=== PATIENT | male | born 1960 | race Caucasian/White ===

== ENCOUNTER 2020-09-07 10:37 | Emergency (ER) | payer MEDICARE, OTHER ==
[~2020-09-07] VITALS: Ht 182.9 cm; Wt 90.7 kg
[2020-09-07] MEDS ORDERED: ATOR20 PO (11:21)
[2020-09-07] MEDS ORDERED: SULFAMETHOXAZO1 EAC1 PO (11:21)
[2020-09-07] MEDS ORDERED: ZOLP5 PO (11:21)
[2020-09-07 11:53] LABS: BASOPHILS ABSOLUTE AUTO 0.03 K/mm3 (0.00-0.23); BASOPHILS PERCENT AUTO 0 % (0-2); EOSINOPHILS ABSOLUTE AUTO 0.12 K/mm3 (0.00-0.68); EOSINOPHILS PERCENT AUTO 1 % (0-6); Hematocrit 40.5 % (37.0-53.0); Hemoglobin 13.6 g/dL (13.5-17.5); IMMATURE GRAN ABSOLUTE AUTO 0.04 K/mm3 (0.00-0.10); IMMATURE GRAN PERCENT AUTO 0 % (0-1); LYMPHOCYTES ABSOLUTE AUTO 1.44 K/mm3 (0.84-5.20); LYMPHOCYTES PERCENT AUTO 13 % (21-46); MONOCYTES ABSOLUTE AUTO 0.83 K/mm3 (0.16-1.47); MONOCYTES PERCENT AUTO 8 % (4-13); Mean Corpuscular HGB 28.8 pg (26.0-34.0); Mean Corpuscular HGB Conc 33.6 g/dL (31.5-36.5); Mean Corpuscular Volume 86 fL (80-100); Mean Platelet Volume 9.3 fL (9.1-12.4); NEUTROPHILS ABSOLUTE AUTO 8.56 K/mm3 (1.96-9.15); NEUTROPHILS PERCENT AUTO 78 % (41-73); Platelet Count 274 K/mm3 (150-400); RDW Coefficient Variation 13.4 % (11.7-14.2); Red Blood Cell Count 4.73 M/mm3 (4.30-5.90); White Blood Cell Count 11.02 K/mm3 (4.00-11.30)
[2020-09-07 12:01] LABS: Anion Gap 4 mmol/L (6-16); Blood Urea Nitrogen 10 mg/dL (8-24); Bun/Creatinine Ratio 9.5 (12.0-20.0); CO2, Blood 28 mmol/L (21-32); Calcium, Blood 8.6 mg/dL (8.5-10.1); Chloride, Blood 107 mmol/L (98-108); Creatinine, Blood 1.05 mg/dL (0.60-1.20); Glomerular Filtration Rate >60 (60-); Glucose, Blood 79 mg/dL (70-99); Potassium, Blood 4.5 mmol/L (3.5-5.5); Sodium, Blood 139 mmol/L (136-145)
[2020-09-07] MEDS ORDERED: CEPH500 PO (15:14)
[2020-11-12] MEDS ORDERED: VITAMIN D310 MC4 PO (10:58)
[2020-11-12] MEDS ORDERED: OMEP20ER PO (10:58)
[2020-11-12] MEDS ORDERED: Vitamin B Comple1 EA PO (10:58)
== END 2020-09-07 15:33 | disposition home or self-care (01) ==
LOC: ER 10:37
PROVIDERS: Emergency Medicine
DX: L02.213 Cutaneous abscess of chest wall (principal); Z87.891 Personal history of nicotine dependence
CPT/HCPCS: 10061; 76604; 80048; 85025; 99283-25; A9270

== ENCOUNTER 2020-11-20 07:51 | Day surgery (SDC) | payer MEDICARE, OTHER ==
[~2020-11-20] VITALS: Ht 176 cm; Wt 92.2 kg
[~2020-11-20 07:51] MED LIST: ATOR20 PO; CEPH500 PO; OMEP20ER PO; SULFAMETHOXAZO1 EAC1 PO; VITAMIN D310 MC4 PO; Vitamin B Comple1 EA PO; ZOLP5 PO
--- NOTE | 2020-11-20 08:20 | NUR ---
Ambulatory in Day Surgery. PT UNABLE TO STATE NAME AND DATE OF . CAREGIVER AT SIDE. VERIFIED SURGICAL SITE AND NPO STATUS WITH CAREGIVER. History, Chart, Medications and Allergies reviewed before start of procedure. Patient reports completing Chlorhexadine shower X2 prior to admission to hospital.Surgical site prepped with 2% Chlorhexidine cloth wipe.
--- NOTE | 2020-11-20 11:21 | NUR ---
Discharge instructions reviewed with patient. Patient verbalizes understanding. Copy given to patient to take home. Dressing to procedure site clean, dry, intact with no visible drainage, swelling, erythema or bruising noted. Patient States Post-Procedure ride home has been arranged. Discharged via wheelchair to private car for ride home. INSTRUCTIONS GIVEN TO SPOT CLEANER PT LIMITED IN SPEECH PT APPEARED TO BE IN LESS PAIN. SPOT CLEANER TOLD TO CALL OFFICE FOR 2 WEEEK APPOINTMENT
== END 2020-11-20 22:53 | disposition home or self-care (01) ==
LOC: ORSCMMR 07:51 → ORD 08:30 → ORSCMMR 08:30
PROVIDERS: Surgery
PROC: 0HBT0ZX Excision of Right Breast, Open Approach, Diagnostic (ICD-10-PCS; principal; 2020-11-20 08:30)
DX: L72.3 Sebaceous cyst (principal); J44.9 Chronic obstructive pulmonary disease, unspecified; I10 Essential (primary) hypertension; F03.90 Unspecified dementia, unspecified severity, without behavioral disturbance, psychotic disturbance, mood disturbance, and anxiety; Z79.899 Other long term (current) drug therapy; Z87.891 Personal history of nicotine dependence
CPT/HCPCS: 88304; 93005; 93010; A9270; J0690; J3010; J7120

== ENCOUNTER 2021-07-15 23:00 | Emergency (ER) | payer MEDICARE, OTHER ==
[~2021-07-15] VITALS: Ht 182.9 cm; Wt 86.2 kg
== END 2021-07-16 01:18 | disposition home or self-care (01) ==
LOC: ER 23:00
DX: F03.90 Unspecified dementia, unspecified severity, without behavioral disturbance, psychotic disturbance, mood disturbance, and anxiety (principal); Z87.891 Personal history of nicotine dependence; Z79.899 Other long term (current) drug therapy
CPT/HCPCS: 36415; 99284

== ENCOUNTER 2021-08-22 12:48 | Inpatient (IN) | payer MEDICARE, OTHER ==
[~2021-08-22] VITALS: Ht 180.3 cm; Wt 77.4 kg
[2021-08-22 13:18] LABS: Source, Urine Straight Cath
[2021-08-22 13:36] LABS: BASOPHILS ABSOLUTE AUTO 0.03 K/mm3 (0.00-0.23); BASOPHILS PERCENT AUTO 1 % (0-2); EOSINOPHILS ABSOLUTE AUTO 0.07 K/mm3 (0.00-0.68); EOSINOPHILS PERCENT AUTO 1 % (0-6); Hematocrit 40.5 % (37.0-53.0); Hemoglobin 13.6 g/dL (13.5-17.5); IMMATURE GRAN ABSOLUTE AUTO 0.02 K/mm3 (0.00-0.10); IMMATURE GRAN PERCENT AUTO 0 % (0-1); LYMPHOCYTES ABSOLUTE AUTO 0.99 K/mm3 (0.84-5.20); LYMPHOCYTES PERCENT AUTO 18 % (21-46); MONOCYTES ABSOLUTE AUTO 0.43 K/mm3 (0.16-1.47); MONOCYTES PERCENT AUTO 8 % (4-13); Mean Corpuscular HGB 29.1 pg (26.0-34.0); Mean Corpuscular HGB Conc 33.6 g/dL (31.5-36.5); Mean Corpuscular Volume 87 fL (80-100); Mean Platelet Volume 9.4 fL (9.1-12.4); NEUTROPHILS ABSOLUTE AUTO 4.07 K/mm3 (1.96-9.15); NEUTROPHILS PERCENT AUTO 73 % (41-73); Platelet Count 257 K/mm3 (150-400); RDW Coefficient Variation 13.2 % (11.7-14.2); RDW Standard Deviation 42.2 fL (35.1-46.3); Red Blood Cell Count 4.68 M/mm3 (4.30-5.90); White Blood Cell Count 5.61 K/mm3 (4.00-11.30)
[2021-08-22 13:37] LABS: Appearance, Urine Hazy (Clear); Bilirubin, Urine Neg (Neg); Blood, Urine 2+ (Neg); Color, Urine Yellow (P-Yellow); Glucose Qualitative, Urine Neg (Neg); Ketones, Urine 1+ (Neg); Leukocyte Esterase, Urine Neg (Neg); Nitrite, Urine Neg (Neg); Protein, Urine 1+ (Neg); Urobilinogen, Urine 1+ (Normal)
[2021-08-22 14:01] LABS: Alanine Aminotransfer (ALT/SGP 38 U/L (12-78); Albumin, Blood 3.8 g/dL (3.4-5.0); Albumin/Globulin Ratio 1.6 (0.8-1.8); Alk Phos 78 U/L (50-136); Anion Gap 4 mmol/L (6-16); Aspartate Aminotrans (AST/SGOT 23 U/L (12-37); Bilirubin, Total 0.6 mg/dL (0.1-1.0); Blood Urea Nitrogen 18 mg/dL (8-24); Bun/Creatinine Ratio 16.7 (12.0-20.0); CO2, Blood 27 mmol/L (21-32); Calcium, Blood 8.7 mg/dL (8.5-10.1); Chloride, Blood 110 mmol/L (98-108); Creatinine, Blood 1.08 mg/dL (0.60-1.20); Ethanol (Alcohol), Blood, Med <3 mg/dL; Globulin, Blood 2.4 g/dL (2.2-4.0); Glomerular Filtration Rate >60 (60-); Glucose, Blood 107 mg/dL (70-99); Sodium, Blood 141 mmol/L (136-145); Total Protein, Blood 6.2 g/dL (6.4-8.2)
[2021-08-22 14:04] LABS: U Amphetamine Screen Not Detected; U Barbituate Screen Not Detected; U Benzodiazapine Screen Not Detected; U Buprenorphine Screen Not Detected; U Cannabinoids Screen Not Detected; U Cocaine Screen Not Detected; U Methadone Screen Not Detected; U Methamphetamine Screen Not Detected; U Opiates Screen Not Detected; U Oxycodone Screen Not Detected; U Phencyclidine Screen Not Detected; U Propoxyphene Screen Not Detected
[2021-08-22 14:19] LABS: Squamous Epithelial Cells Few /hpf (Few)
[2021-08-22 14:20] LABS: Bacteria Few /hpf; Mucus Mod (0-Heavy)
[2021-08-22 15:11] LABS: Influenza A, PCR NEGATIVE (NEGATIVE); Influenza B, PCR NEGATIVE (NEGATIVE); Resp Syncytial Virus, PCR NEGATIVE (NEGATIVE); SARS-Cov-2 (COVID-19) PCR, MMC NEGATIVE (NEGATIVE)
[2021-08-23] MEDS ORDERED: DONE5 PO (17:18)
--- NOTE | 2021-08-23 17:39 | NUR ---
PT ARRIVED 1500 VIA CART AND WAS ABLE TO STAND AND BE DIRECTED TO BED. PT WAS SLIGHLTY UNSTEADY AND IS VERY HARD TO REDIRECT. PT STARTED TO IMMEDIATELY GET OUT OF BED AND DOES NOTE UNDERSTAND WHY HE IS IN BED. PT WAS REDIRECTED MULTIPLE TIMES. PT DOES NOT KNOW HOW TO LAY TOWARDS THE HEAD OF BED AND IT TAKES TWO PEOPLE TO GET HIM LAYED DOWN. DR NERI WAS NOTIFIED AND POSE IS IN PLACE TO KEEP PT FROM FALLING AND HURTING HIMSELF. PT IS ALSO BEING MONITORED BY CAMERA. PRIOR TO POSE PT WAS TREATED FOR AGITATION PER EMAR. WILL CONTINUE TO MONITOR.
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
--- NOTE | 2021-08-25 16:14 | NUR ---
Pt awake nursing at bedside. Called jocy his caregiver she states some decline the past few months. Stated his doctor put him on ambien three montha ago. Pt has a mother who is very elderly. Jocy is his payee with [employer]. Jocy and his mother had an IRIS appoinment with his [facility] care team. It is a program that completes advance directives with patients and family. pt is a DNR will get copy for chart. Notified physician pt made DNR.
--- NOTE | 2021-08-25 16:29 | NUR ---
pt missed radiology appointment today called to see what was scheduled. He was scheduled for ultrsound of carotid arteries and ches to check for anerysm.
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
--- NOTE | 2021-08-25 18:16 | NUR ---
PATIENT WOKE FROM SEDATION AND BECAME AGITATED AND AGGRESSIVE. PRN'S OF SEROQUEL AND ZYPREXA, AND HARD RESTRAINTS APPLIED FOR INTERVENTIONS. PATIENT IS LYING ON BED, INTERMITTENTLY YELLING OUT. CIRCULATION, BREATHING INTACT.
--- NOTE | 2021-08-25 22:58 | NUR ---
pt was removed from hard wrist restraints and soft ankle restraints at approx 2229. he remains in a dax vest but for now he is sleeping and additional restraints are not warranted.
--- NOTE | 2021-08-26 04:10 | NUR ---
SHIFT SUMMARY 61 YR M ADMITTED ON 08/23/21 FOR VASCULAR DIMENTIA. AT START OF SHIFT PT WAS IN HARD WRIST AND SOFT ANKLE RESTRAINTS. THESE WERE REMOVED DURING THE SHIFT PT WAS SHOWING NO SIGNS OF VIOLENT TENDANCIES. CHAVEZ VEST REMAINED ON A PRECAUTION TO PREVENT INJURY. PT WAS MEDICATED WITH SEROQUEL PER EMAR AND ONLY SCHEDULED DOSE WAS GIVEN. HE SLEPT MOST OF THE SHIFT AND MADE VERY LITTLE ATTEMPT TO GET OUT OF BED. HE DID NOT SHOW EXTREME AGGRESSION DURING THIS SHIFT. WRIST AND ANKLE RESTRAINTS DID NOT HAVE TO BE REAPPLIED THIS SHIFT. HE TOOK MEDS WHOLE W/ APPLESAUCE W/O DIFFICULTY.
--- NOTE | 2021-08-26 12:55 | NUR ---
pt displaying some air hunger review of medications with nursing. Pt does not have family chaplian notified.
--- NOTE | 2021-08-26 15:34 | NUR ---
PATIENT BLADDER SCANER SHOWS [address] GODFREY NOTIFIED, AN ORDER FOR I&O CATH RECEIVE. ATTEMPT TO CATH PATIENT. PATIENT AGITATED, YELLING, SWEARING AND SHAKING RAILS, CHAVEZ VEST ON. ZYPREXA 10 MG ADMINISTRATED. WILL CONTINUE TO MONITOR.
--- NOTE | 2021-08-26 17:41 | NUR ---
PATIENT CALM, STRAIGHT CATH DONE, 600 ML OF BOUBACAR, CLEAR URINE OBTAINED. PATIENT TOLERATED WELL. WILL CONTINUE TO MONITOR FOR RETENTION.
--- NOTE | 2021-08-27 06:33 | NUR ---
Patient is drowsy, but arousable. Oriented to self only. Patient becomes combative and impulsive. Will swing his arms when task is being done to him like medication administration or changing linens and diapers. He has vest on, and tries to get out of them and pulls on the string. PRN zyprexa and seroquel given. Patient is now sleeping. No signs of distress. Call light within reach. Bed alarm on. Q2 restraint assessment completed.
--- NOTE | 2021-08-27 12:46 | NUR ---
PATIENT BECAME VERY AGITATED AND AGRESIVE, YEALLING AND SHAKING RAILS, HE WAS ABLE TO REMOVE CHAVEZ VEST. WE WERE ABLE TO PUT RESTRAINTS BACK WITH THE HELP OF 4 PEOPLE. ZYPREXA 10 MG IV ADMINISTRATED. NOTIFIED, A NEW ORDER RECIEVED FOR AIDE SOFT WRISTS AND CHAVEZ VELT RESTRAINTS. RESTRAINS ON. PATIENT SLEEPIN AT THIS TIME.
--- NOTE | 2021-08-27 18:17 | NUR ---
PATIENT CONTINUE TO HAVE EPISODES ON AGRESSON AND GET COMBATIVE. ZYPREXA 10 MG ADMINISTRATED ORDERED. SOFT WRISTS AND VEST RESTRAINTS ON. PATIENT UNABLE TO VOID, BLADDER SCANNER REVELED 580 ML OF URINE, STRAIGHT CATH DONE, 600 ML OF URINE OBTAINED.
--- NOTE | 2021-08-27 18:33 | NUR ---
PATIENT CONTINUE TO HAVE EPISODES ON AGRESSON AND GET COMBATIVE. ZYPREXA 10 MG ADMINISTRATED ORDERED. SOFT WRISTS AND VEST RESTRAINTS ON. PATIENT UNABLE TO VOID, BLADDER SCANNER SHOWED 580 ML OF URINE, STRAIGHT CATH DONE, 600 ML OF URINE OBTAINED, PLUS AN INCONTINENT AMOUNT OF UNMEASURED URINE WHILE PATIENT PUSHED THE CATHETER OUT.
--- NOTE | 2021-08-28 04:51 | NUR ---
Patient Alert, remains in restraint. He removed both his hand and get out of bed. We were able to put him back even with punching all over. He was then medicated with zyprexa per EMAR. Vital stable, breathing at R/A unlabored. We will continue to monitor patient until giving report to the oncoming nurse.
[2021-08-28 14:17] LABS: Source, Urine Foley catheter
[2021-08-28 14:25] LABS: Bilirubin, Urine Neg (Neg); Blood, Urine 4+ (Neg); Glucose Qualitative, Urine Neg (Neg); Ketones, Urine Neg (Neg); Leukocyte Esterase, Urine 1+ (Neg); Nitrite, Urine Neg (Neg); Protein, Urine 2+ (Neg); Urobilinogen, Urine 1+ (Normal); pH, Urine 6.5 (5.0-8.0)
[2021-08-28 14:39] LABS: Color, Urine Pale Yellow (P-Yellow)
[2021-08-28 14:40] LABS: Appearance, Urine Hazy (Clear)
[2021-08-28 14:41] LABS: Amorphous Light (0-Heavy); Bacteria Few /hpf; Squamous Epithelial Cells Few /hpf (Few)
--- NOTE | 2021-08-28 17:52 | NUR ---
SHIFT SUMMARY: PATIENT CONTINUES HAVING EPISODES ON AGITATION AND AGRESSION. ZYPREXA GIVEN WELL SERAQUEL PRN. YAP CATH INSERTED DUE TO URINARY RETENTION.
--- NOTE | 2021-08-29 05:31 | NUR ---
Patient Alert, slept throughout the shift. He is at R/A, No acute changes. we will report to the oncoming nurse.
--- NOTE | 2021-08-29 08:39 | NUR ---
LOW BP'S 99/69 THIS AM WITH SINUS TACH HR, CALLED THE DR. KYARA BUSCH AT THIS POINT.
--- NOTE | 2021-08-29 15:43 | NUR ---
Notifed RN of view score 4.
--- NOTE | 2021-08-29 17:23 | NUR ---
SHIFT SUMMARY PT AOX1; CONFUSED. PT IS STILL ON RESTRAINTS DUE TO CONFUSION AND COMBATIVENESS. PT BP IS LOW; CALLED THE DR AGAIN THIS AFTERNOON AND RECEIVED AN ORDER OF 1L BOLUS OF NS. WILL RECHECK BP. BED IS IN THE LOWEST POSITION AND CALL LIGHT WITHIN REACH
--- NOTE | 2021-08-29 17:51 | NUR ---
Patient doesnt have many teeth so it's difficult for him to chew and swallow. Cannot hold half of a grilled cheese sandwich in his hand without shaking.
--- NOTE | 2021-08-29 18:51 | NUR ---
PT HAD AN EPISODE OF SHAKING AND CLAMMY, CHECKED VS; OTHER THAN TACHY, BP IS ON THE LOW SIDE STILL AND RESPIRATION 30S ALTHOUGH 1L OF FLUID GIVEN. PT HAD A HIGH RESPIRATION DUE TO SHAKINESS AND AGITATED AT ONE POINT. PT GIVEN ZYPREXA IM PER DR ORDER. DR WOULD LIKE TO GIVE ZYPREXA THAN SEROQUEL. PT STILL ON RESTRAINT. CALLED THE DR FOR LAB ORDERS STAT. DR CAME AT BEDSIDE TO ASSESS THE PT, PT IS NOW CALM AND RESPIRATION COUNT WNL.
[2021-08-29 19:27] LABS: Base Excess Venous -10.3 mmol/L; Bicarbonate Venous 16.5 mmol/L (24.0-30.0); PCO2 Venous 27.9 mmHg (38-42); PO2 Venous 48.4 mmHg (38-42); pH Blood Venous 7.35 (7.34-7.37)
[2021-08-29 19:30] LABS: BASOPHILS ABSOLUTE AUTO 0.02 K/mm3 (0.00-0.23); BASOPHILS PERCENT AUTO 0 % (0-2); EOSINOPHILS ABSOLUTE AUTO 0.02 K/mm3 (0.00-0.68); EOSINOPHILS PERCENT AUTO 0 % (0-6); IMMATURE GRAN ABSOLUTE AUTO 0.15 K/mm3 (0.00-0.10); IMMATURE GRAN PERCENT AUTO 1 % (0-1); LYMPHOCYTES ABSOLUTE AUTO 0.77 K/mm3 (0.84-5.20); LYMPHOCYTES PERCENT AUTO 6 % (21-46); MONOCYTES ABSOLUTE AUTO 0.53 K/mm3 (0.16-1.47); MONOCYTES PERCENT AUTO 4 % (4-13); Mean Corpuscular HGB 29.4 pg (26.0-34.0); Mean Corpuscular HGB Conc 31.9 g/dL (31.5-36.5); Mean Corpuscular Volume 92 fL (80-100); Mean Platelet Volume 10.8 fL (9.1-12.4); NEUTROPHILS ABSOLUTE AUTO 11.76 K/mm3 (1.96-9.15); NEUTROPHILS PERCENT AUTO 89 % (41-73); NRBC ABSOLUTE 0.03 K/mm3 (0.00-0.02); NRBC Auto 0.2 /100 WBC (0.0-0.2); Platelet Count 268 K/mm3 (150-400); RDW Standard Deviation 45.3 fL (35.1-46.3); White Blood Cell Count 13.25 K/mm3 (4.00-11.30)
[2021-08-29 19:32] LABS: Hematocrit 16.6 % (37.0-53.0); Hemoglobin 5.3 g/dL (13.5-17.5)
[2021-08-29 19:50] LABS: Albumin, Blood 2.4 g/dL (3.4-5.0); Albumin/Globulin Ratio 1.1 (0.8-1.8); Bilirubin, Total 0.2 mg/dL (0.1-1.0); Bun/Creatinine Ratio 51.9 (12.0-20.0); Creatinine, Blood 1.54 mg/dL (0.60-1.20); Globulin, Blood 2.2 g/dL (2.2-4.0); Magnesium, Blood 2.3 mg/dL (1.6-2.4); Phosphorus, Blood 4.8 mg/dL (2.5-4.9); Potassium, Blood 4.4 mmol/L (3.5-5.5); Total Protein, Blood 4.6 g/dL (6.4-8.2)
--- NOTE | 2021-08-29 20:33 | NUR ---
REMAINS AGITATED AT TIMES. BLOOD DRAWN, RESULTS LOW HGB. MD ORDERED ONE UNIT OF PRBC TO BE ADMINISTERED. CALL LIGHT IN REACH. RESTRAINTS ASSESSED AND REMAIN IN PLACE.
--- NOTE | 2021-08-29 22:13 | NUR ---
PRBC INFUSING, NO S/S ADVERSE REACTIONS. MULTIPLE ATTEMPTS AT REDIRECTION, INTERMITTENT AGITATION. SEE RESTRAINT DOCUMENTATION FOR DETAILS. CALL LIGHT IN REACH
--- NOTE | 2021-08-29 22:57 | NUR ---
PT PULLED IV OUT, NEW IV #20 PLACED IN RIGHT HAND, PRBC INFUSING. RECEIVED IM ZYPREXA ORDERED FOR AGITATION, MED EFFECTIVE, LESS AGITATED. SOLAR INSTALLATION MANAGER CALLED, ASKED FOR UPDATE (NAME AND NUMBER IN CHART), INFO GIVEN. CALL LIGHT IN REACH. WILL CONTINUE TO MONITOR.
--- NOTE | 2021-08-30 00:51 | NUR ---
ONE UNIT PRBC INFUSED. HR RAPID, BUT BP WNL (TAKEN MANUALLY 110/80). RESTING QUIETLY. CALLED NUMBER FOR CAREGIVER, BUT NO ANSWER, (SHE WANTED TO TALK TO PT AFTER BLOOD INFUSED). CALL LIGHT IN REACH
--- NOTE | 2021-08-30 04:10 | NUR ---
SAILMAKER SUMMARY HGB WAS 5.3 AROUND SHIFT COMMENCE, MD ORDERED ONE UNIT PRBC TO BE INFUSED. PT QUITE AGITATED, RESTLESS. PULLED IV OUT, RECEIVED AN IM OF ZYPREXA, CALMED DOWN AND NEW IV STARTED AND PRBC INFUSED. TEMP, HR AND BP ELEVATED AT INTERVALS THROUGH SHIFT - SEE DOCUMENTATION FOR DETAILS. MOST RECENT VS: RESP 20, DOWN FROM HIGH 28 EARLIER IN THE SHIFT, 100.4 (DOWN FROM 101.1 EARLIER IN SHIFT), HR 115, DOWN FROM 130'S TO 170'S EARLIER, BP 108/77, WHICH IS ALSO DOWN FROM EARLIER - SEE DOC FLOW SHEETS FOR DETAILS. CURRENTLY RESTING QUIETLY, WITH OCCASIONIAL EPISODE OF AGITATION. CAREGIVER LEONEL SPOKE WITH STAFF FOR UPDATES. CALL LIGHT IN REACH. FRACISCO BOSE. FOLLOW UP BLOOD DRAW FOR HGB JUST DRAWN, WAITING FOR RESULTS
[2021-08-30 04:36] LABS: Hematocrit 21.4 % (37.0-53.0); Mean Corpuscular HGB 30.7 pg (26.0-34.0); Mean Corpuscular HGB Conc 32.7 g/dL (31.5-36.5); Mean Corpuscular Volume 94 fL (80-100); Mean Platelet Volume 10.9 fL (9.1-12.4); NRBC ABSOLUTE 0.07 K/mm3 (0.00-0.02); NRBC Auto 0.4 /100 WBC (0.0-0.2); Platelet Count 267 K/mm3 (150-400); RDW Coefficient Variation 14.6 % (11.7-14.2); RDW Standard Deviation 47.8 fL (35.1-46.3); Red Blood Cell Count 2.28 M/mm3 (4.30-5.90); White Blood Cell Count 15.81 K/mm3 (4.00-11.30)
[2021-08-30 10:02] LABS: Hematocrit 19.3 % (37.0-53.0); Hemoglobin 6.4 g/dL (13.5-17.5); Mean Corpuscular HGB 30.6 pg (26.0-34.0); Mean Corpuscular HGB Conc 33.2 g/dL (31.5-36.5); Mean Corpuscular Volume 92 fL (80-100); Mean Platelet Volume 10.8 fL (9.1-12.4); NRBC Auto 0.6 /100 WBC (0.0-0.2); Platelet Count 272 K/mm3 (150-400); RDW Coefficient Variation 14.8 % (11.7-14.2); RDW Standard Deviation 47.8 fL (35.1-46.3); Red Blood Cell Count 2.09 M/mm3 (4.30-5.90)
[2021-08-30 11:06] LABS: BASOPHILS ABSOLUTE MAN 0.16 K/mm3 (0.00-0.23); BASOPHILS PERCENT MAN 1 % (0-2); EOSINOPHILS ABSOLUTE MAN 0.16 K/mm3 (0.00-0.68); EOSINOPHILS PERCENT MAN 1 % (0-6); LYMPHOCYTES ABSOLUTE MAN 2.24 K/mm3 (0.84-5.20); LYMPHOCYTES PERCENT MAN 14 % (21-46); MONOCYTES ABSOLUTE MAN 0.96 K/mm3 (0.16-1.47); MONOCYTES PERCENT MAN 6 % (4-13); NEUTROPHILS ABSOLUTE MAN 12.48 K/mm3 (1.96-9.15); SEG NEUTROPHILS PERCENT MAN 78 % (41-73); TOTAL CELLS COUNTED 100
[2021-08-30 11:57] LABS: Source, Urine Foley catheter
[2021-08-30 12:00] LABS: Bilirubin, Urine Neg (Neg); Blood, Urine 2+ (Neg); Glucose Qualitative, Urine Neg (Neg); Ketones, Urine Neg (Neg); Leukocyte Esterase, Urine 1+ (Neg); Nitrite, Urine Neg (Neg); Protein, Urine 2+ (Neg); Specific Gravity, Urine 1.025 (1.003-1.022); Urobilinogen, Urine NORM (Normal)
[2021-08-30 12:07] LABS: Appearance, Urine Hazy (Clear); Color, Urine Pale Yellow (P-Yellow)
[2021-08-30 12:08] LABS: Amorphous Light (0-Heavy); Bacteria Few /hpf; Mucus Heavy (0-Heavy); Squamous Epithelial Cells Few /hpf (Few)
[2021-08-30 15:03] LABS: Hematocrit 21.9 % (37.0-53.0); Hemoglobin 7.2 g/dL (13.5-17.5)
--- NOTE | 2021-08-30 16:25 | NUR ---
PT IS AWAKE ALERT, ORIENTED TO SELF, PT MUMBLES AND IS INCOHERANT AT TIMES AT OTHER TIMES THE PT APPEARS TO RESPOND APPROPRIATLY, THE PT IS IN BILATERAL SOFT WRIST RESTRAINTS AND CHAVEZ VEST FOR HIS SAFTEY, THE PT IS IMPULSIVE AND EASILY AGITATED AND AT TIMES COMBATIVE, PT IS A HIGH FALL RISK, AND PULLS AT HIS URINARY CATHETER AND IV. THE PT RECIEVED 1 UNIT OF PRBC'S TODAY AND TOLERATED IT WELL. PT WAS ABLE TO TAKE SOME BITES OF SOFT FOOD AND DRINK SOME FLUIDS. BED ALARM ON, CALL LIGHT IN REACH, WILL CONTINUE TO MONITOR AND ASSESS FOR CHANGES
--- NOTE | 2021-08-30 17:49 | NUR ---
LORAZAPAM GAVE ATIVAN X1 PRIOR TO CT ABD X1 DUE TO AGITATION
[2021-08-30 20:06] LABS: Hematocrit 21.7 % (37.0-53.0); Hemoglobin 7.2 g/dL (13.5-17.5)
[2021-08-30 20:59] LABS: Stool Occult Blood Guaiac 1 Neg (Neg)
--- NOTE | 2021-08-31 04:35 | NUR ---
SUMMARY: PT ORIENTED TO SELF ONLY. HE'S DROWSY BUT ROUSES DURING CARE AND PULLS AT LINES/RESTRAINTS WHENEVER AWAKE. CHAVEZ AND SOFT WRIST RESTRAINTS REMAIN INTACT D/T IMPULSIVITY, AGGITATION AND COMBATIVENESS AT TIMES. BED ALARM ON FOR FALL RISK. HE WASN'T ABLE TO SPECIFY NEEDS TONIGHT BUT MUMBLED INCOHERENTLY TO Q'S AND OCCASSIONALLY SHOUTED CURSE WORDS W/REPOSITIONING AND MEDICATION ADMINSTRATION. ORAL MEDS RECIEVED CRUSHED IN ICECREAM BUT PT REFUSED PO INTAKE AFTER A FEW BITES AT A TIME. TURN SCHEDULE MAINTAINED AND YAP IS PATENT/DRAINING. NO S/S BLEEDING THIS SHIFT, GUAIAC WAS NEGATIVE AND HGB/HCT REMAINED STABLE AFTER 1 UNIT PRBC'S RECIEVED ON DAY SHIFT. NO ACUTE CHANGES, VSS BUT HE REMAINS TACHY PER TREND. MARTHA AND REPORT TO DAY RN.
[2021-08-31 05:50] LABS: BASOPHILS ABSOLUTE AUTO 0.05 K/mm3 (0.00-0.23); BASOPHILS PERCENT AUTO 0 % (0-2); EOSINOPHILS ABSOLUTE AUTO 0.32 K/mm3 (0.00-0.68); EOSINOPHILS PERCENT AUTO 2 % (0-6); Hematocrit 22.2 % (37.0-53.0); IMMATURE GRAN ABSOLUTE AUTO 0.27 K/mm3 (0.00-0.10); IMMATURE GRAN PERCENT AUTO 2 % (0-1); LYMPHOCYTES ABSOLUTE AUTO 1.68 K/mm3 (0.84-5.20); LYMPHOCYTES PERCENT AUTO 11 % (21-46); MONOCYTES ABSOLUTE AUTO 1.19 K/mm3 (0.16-1.47); MONOCYTES PERCENT AUTO 8 % (4-13); Mean Corpuscular HGB 30.2 pg (26.0-34.0); Mean Corpuscular HGB Conc 31.5 g/dL (31.5-36.5); Mean Corpuscular Volume 96 fL (80-100); Mean Platelet Volume 10.2 fL (9.1-12.4); NEUTROPHILS ABSOLUTE AUTO 12.25 K/mm3 (1.96-9.15); NEUTROPHILS PERCENT AUTO 78 % (41-73); NRBC ABSOLUTE 0.27 K/mm3 (0.00-0.02); NRBC Auto 1.7 /100 WBC (0.0-0.2); Platelet Count 299 K/mm3 (150-400); RDW Coefficient Variation 16.5 % (11.7-14.2); RDW Standard Deviation 52.3 fL (35.1-46.3); Red Blood Cell Count 2.32 M/mm3 (4.30-5.90); White Blood Cell Count 15.76 K/mm3 (4.00-11.30)
[2021-08-31 06:12] LABS: Albumin, Blood 2.8 g/dL (3.4-5.0); Anion Gap 2 mmol/L (6-16); Blood Urea Nitrogen 50 mg/dL (8-24); Bun/Creatinine Ratio 38.2 (12.0-20.0); CO2, Blood 27 mmol/L (21-32); Calcium, Blood 8.5 mg/dL (8.5-10.1); Chloride, Blood 125 mmol/L (98-108); Creatinine, Blood 1.31 mg/dL (0.60-1.20); Glomerular Filtration Rate 56 (60-); Glucose, Blood 123 mg/dL (70-99); Phosphorus, Blood 3.5 mg/dL (2.5-4.9); Potassium, Blood 4.4 mmol/L (3.5-5.5); Sodium, Blood 154 mmol/L (136-145)
--- NOTE | 2021-08-31 13:45 | NUR ---
1 MG IV ATIVAN GIVEN TO ASSIST PT HOLDING STILL FOR CT SCAN. WILL MONITOR
--- NOTE | 2021-08-31 17:51 | NUR ---
HEAD CT UNABLE TO BE DONE DUE TO PT AGITATION AND RESTLESSNESS. IV ATIVAN WAS NOT EFFECTIVE. DR GODFREY INFORMED. NO NEW ORDERS
[2021-08-31 22:26] LABS: BASOPHILS ABSOLUTE AUTO 0.03 K/mm3 (0.00-0.23); BASOPHILS PERCENT AUTO 0 % (0-2); EOSINOPHILS ABSOLUTE AUTO 0.22 K/mm3 (0.00-0.68); EOSINOPHILS PERCENT AUTO 2 % (0-6); Hematocrit 19.9 % (37.0-53.0); Hemoglobin 6.3 g/dL (13.5-17.5); IMMATURE GRAN ABSOLUTE AUTO 0.15 K/mm3 (0.00-0.10); IMMATURE GRAN PERCENT AUTO 1 % (0-1); LYMPHOCYTES ABSOLUTE AUTO 1.88 K/mm3 (0.84-5.20); LYMPHOCYTES PERCENT AUTO 15 % (21-46); MONOCYTES ABSOLUTE AUTO 0.95 K/mm3 (0.16-1.47); MONOCYTES PERCENT AUTO 8 % (4-13); Mean Corpuscular HGB Conc 31.7 g/dL (31.5-36.5); Mean Corpuscular Volume 98 fL (80-100); Mean Platelet Volume 10.2 fL (9.1-12.4); NEUTROPHILS ABSOLUTE AUTO 9.43 K/mm3 (1.96-9.15); NEUTROPHILS PERCENT AUTO 75 % (41-73); NRBC Auto 2.4 /100 WBC (0.0-0.2); Platelet Count 281 K/mm3 (150-400); RDW Coefficient Variation 17.1 % (11.7-14.2); RDW Standard Deviation 54.6 fL (35.1-46.3); Red Blood Cell Count 2.03 M/mm3 (4.30-5.90); White Blood Cell Count 12.66 K/mm3 (4.00-11.30)
[2021-08-31 22:43] LABS: Stool Occult Blood Guaiac 1 Neg (Neg)
[2021-09-01 05:41] LABS: BASOPHILS ABSOLUTE AUTO 0.03 K/mm3 (0.00-0.23); BASOPHILS PERCENT AUTO 0 % (0-2); EOSINOPHILS ABSOLUTE AUTO 0.34 K/mm3 (0.00-0.68); EOSINOPHILS PERCENT AUTO 3 % (0-6); Hematocrit 23.9 % (37.0-53.0); Hemoglobin 7.4 g/dL (13.5-17.5); IMMATURE GRAN ABSOLUTE AUTO 0.18 K/mm3 (0.00-0.10); IMMATURE GRAN PERCENT AUTO 2 % (0-1); LYMPHOCYTES ABSOLUTE AUTO 1.88 K/mm3 (0.84-5.20); LYMPHOCYTES PERCENT AUTO 15 % (21-46); MONOCYTES ABSOLUTE AUTO 0.95 K/mm3 (0.16-1.47); MONOCYTES PERCENT AUTO 8 % (4-13); Mean Corpuscular HGB 29.5 pg (26.0-34.0); Mean Corpuscular Volume 95 fL (80-100); Mean Platelet Volume 10.1 fL (9.1-12.4); NEUTROPHILS ABSOLUTE AUTO 8.99 K/mm3 (1.96-9.15); NEUTROPHILS PERCENT AUTO 73 % (41-73); NRBC ABSOLUTE 0.28 K/mm3 (0.00-0.02); NRBC Auto 2.3 /100 WBC (0.0-0.2); Platelet Count 281 K/mm3 (150-400); RDW Coefficient Variation 18.5 % (11.7-14.2); RDW Standard Deviation 56.7 fL (35.1-46.3); Red Blood Cell Count 2.51 M/mm3 (4.30-5.90); White Blood Cell Count 12.37 K/mm3 (4.00-11.30)
[2021-09-01 06:16] LABS: Albumin, Blood 2.7 g/dL (3.4-5.0); Anion Gap 3 mmol/L (6-16); Blood Urea Nitrogen 31 mg/dL (8-24); Bun/Creatinine Ratio 29.5 (12.0-20.0); CO2, Blood 27 mmol/L (21-32); Calcium, Blood 8.3 mg/dL (8.5-10.1); Chloride, Blood 123 mmol/L (98-108); Creatinine, Blood 1.05 mg/dL (0.60-1.20); Glomerular Filtration Rate >60 (60-); Glucose, Blood 110 mg/dL (70-99); Phosphorus, Blood 3.9 mg/dL (2.5-4.9); Potassium, Blood 3.8 mmol/L (3.5-5.5); Sodium, Blood 153 mmol/L (136-145)
--- NOTE | 2021-09-01 06:32 | NUR ---
SHIFT SUMMARY Pt confused, has garbled speech, limited movement x4 extremities with intermittent tremors noted. Pt febrile with HR in the 120's at beginning of shift. MD notified and orders received to recheck CBC, check EKG, and give Ativan per mar to help relax pt for previously ordered CT scan of the head. Hgb noted to be 6.3, 1 unit PRBC given per orders, pt tolerated well. HR in the 90's to low 100's after blood complete. Pt afebrile remaining shift, repositioned for comfort, and tamiko care done as needed for incontinent bm x 2. Stool was brown, soft. Sainz patent with marginal amount of erika urine, sainz care done. Alek vest and BUE soft wrist restraints remain in place due to pt pulling at lines and impulsive. Anticipate d/c when medically stable.
[2021-09-01 09:30] LABS: Creatine Kinase MB 2.3 ng/mL (0.0-3.6); Creatine Kinase MB Index 0.4 (0.0-4.0)
--- NOTE | 2021-09-01 12:04 | NUR ---
Restraint huddle with Jaye Galdamez, Elaine Baldwin, Arianna Solo, and care management. Discussed barriers to discharge as well as barriers to restraint removal. Discussed plan for Jaye to discuss with Dr. Gore regarding medications. Care management will talk with caregiver to see if she will come in to see patient and possibly offer suggestions for patient comfort and safety.
--- NOTE | 2021-09-01 15:03 | NUR ---
TRANSFER: PROVIDER DIRECTED, DUE TO SUSPECTED NEUROLEPTIC MALIGNANT SYNDROME (SX: RIDGIDITY AND DECREASED LOC), PT WAS TRANSFERED TO ICU BED [address] IV SALINE LOCED FOR TRANSFER. BELONINGS WERE BAGGED AND BROUGHT TO ICU WITH PATIENT. PATIENT WAS TRANSPORTED IN HOSPITAL BED WITH MASK ON.
--- NOTE | 2021-09-01 16:00 | NUR ---
TRANSFER TO ICU PATIENT ARRIVED TO ICU FROM MEDICAL FLOOR AT 1450. PATIENT MUMBLING INCOHERENTLY. PATIENT UNABLE TO TRACK NURSE. PATIENT UNABLE TO ANSWER ANY NURSE QUESTIONS. DYSTONIA AND MUSCLE TWITCHING NOTED. PATIENT APPEARS SLIGHTLY RIGID. PATIENT HAS TEMP OF 99.4 DEGREES FAHRENHEIT. PATIENT SATTING 90% AND GREATER ON RA. LUNGS CLEAR. ETCO2 ON PATIENT. PATIENT IN ST, HR LOW 100S. SBP 80S TO 120S. SCDS PLACED. HYPERACTIVE BOWEL SOUNDS NOTED. PATIENT HAD BM TODAY PER DOCUMENTATION. PATIENT ON SOFT DIET. PATIENT FEEDER AND TAKES MEDS CRUSHED IN CHOCOLATE PUDDING PER MEDICAL FLOOR NURSE. YAP DRAINING ORANGE COLORED URINE. SCABS NOTED TO TO OF L HAND AND TO TOP OF R TOES. LARGE BRUISE TO L AC. L HEEL RED, BUT BLANCHEABLE. HEEL PROTECTORS PLACED TO BILAT HEELS. D5W 1/2 NS INFUSING AT 100 MLS/ HOUR. BED LOW, CALL LIGHT IN REACH. WILL CONTINUE TO MONITOR PATIENT FREQUENTLY THROUGHOUT SHIFT.
[2021-09-01 17:38] LABS: Albumin, Blood 2.6 g/dL (3.4-5.0); Bilirubin, Direct 0.1 mg/dL (0.0-0.3); Bilirubin, Indirect 0.4 mg/dL (0.1-0.7); Bilirubin, Total 0.5 mg/dL (0.1-1.0); Globulin, Blood 2.6 g/dL (2.2-4.0); Total Protein, Blood 5.2 g/dL (6.4-8.2)
--- NOTE | 2021-09-01 19:21 | NUR ---
SHIFT SUMMARY PATIENT HAS REMAINED WITH DECREASED LOC, NOT RESPONDING TO NURSE, BUT WIGGLING AROUND IN BED CONSTANTLY. DYSTONIA AND MUSCLE TWITCHING REMAIN. PATIENT HAD TMAX OF 101.1 DEGREES FAHRENHEIT. PATIENT REMAINED SATTING 90% AND GREATER ON RA. ETCO2 REMAINED ON PATIENT AND REMAINED LESS THAN 45. PATIENT REMAINED IN SR TO ST, HR 90S TO LOW 100S. SBP 80S TO 150S. SCDS IN PLACE. DOBHOFF PLACED FOR MED ADMINISTRATION. WAITING FOR PLACEMENT CONFIRMATION FROM HOSPITALIST. NO BM SINCE ARRIVED TO ICU. 550 MLS OF ORANGE COLORED URINE OUT FROM YAP. NO CHANGES TO SKIN NOTED. PATIENT REPOSITIONED Q2H. D5W 1/2 NS INFUSING AT 100 MLS/ HOUR. DANTROLENE GIVEN. REPORT HAS BEEN GIVEN TO ASSUMING COMPUTERIZED TABLE CUTTER NURSE.
--- NOTE | 2021-09-01 21:10 | NUR ---
ASSUMED CARE AT 1900 PATIENT IS ALERT AND ORIENTED X0. MOANS AND ANSWERS YES OCCASIONALLY. UNABLE TO FOLLOW COMMANDS. MOVING ALL EXTREMETIES AND HAVING DYSINESIA LIKE MOVEMENTS. 02 SATS 95% ON 2L VIA NC. WEAK COUGH WITH NO SPUTUM PRODUCTION. HR SR-ST CURRENTLY SR @99. BP STABLE. YAP DRAINING TO GRAVITY. DOBHOFF CHECKED VIA X RAY AND DR. FAUST GAVE OK TO USE. PATIENT REPOSITIONED SEVERAL TIMES. CATH CARE DONE, ORAL CARE DONE. SEE SHIFT ASSESSMENT FOR MORE DETAIL.
[2021-09-02 03:41] LABS: BASOPHILS ABSOLUTE AUTO 0.02 K/mm3 (0.00-0.23); BASOPHILS PERCENT AUTO 0 % (0-2); EOSINOPHILS ABSOLUTE AUTO 0.07 K/mm3 (0.00-0.68); EOSINOPHILS PERCENT AUTO 1 % (0-6); Hematocrit 24.1 % (37.0-53.0); Hemoglobin 7.4 g/dL (13.5-17.5); IMMATURE GRAN ABSOLUTE AUTO 0.09 K/mm3 (0.00-0.10); IMMATURE GRAN PERCENT AUTO 1 % (0-1); LYMPHOCYTES ABSOLUTE AUTO 1.03 K/mm3 (0.84-5.20); LYMPHOCYTES PERCENT AUTO 7 % (21-46); MONOCYTES ABSOLUTE AUTO 0.79 K/mm3 (0.16-1.47); MONOCYTES PERCENT AUTO 6 % (4-13); Mean Corpuscular HGB 29.6 pg (26.0-34.0); Mean Corpuscular HGB Conc 30.7 g/dL (31.5-36.5); Mean Corpuscular Volume 96 fL (80-100); Mean Platelet Volume 10.2 fL (9.1-12.4); NEUTROPHILS ABSOLUTE AUTO 11.95 K/mm3 (1.96-9.15); NEUTROPHILS PERCENT AUTO 86 % (41-73); NRBC ABSOLUTE 0.09 K/mm3 (0.00-0.02); NRBC Auto 0.6 /100 WBC (0.0-0.2); Platelet Count 258 K/mm3 (150-400); RDW Coefficient Variation 18.9 % (11.7-14.2); White Blood Cell Count 13.95 K/mm3 (4.00-11.30)
[2021-09-02 04:05] LABS: Alanine Aminotransfer (ALT/SGP 45 U/L (12-78); Albumin, Blood 2.6 g/dL (3.4-5.0); Albumin/Globulin Ratio 0.9 (0.8-1.8); Alk Phos 68 U/L (50-136); Anion Gap 4 mmol/L (6-16); Aspartate Aminotrans (AST/SGOT 44 U/L (12-37); Bilirubin, Total 0.7 mg/dL (0.1-1.0); Blood Urea Nitrogen 19 mg/dL (8-24); Bun/Creatinine Ratio 17.6 (12.0-20.0); CO2, Blood 26 mmol/L (21-32); Calcium, Blood 7.9 mg/dL (8.5-10.1); Chloride, Blood 118 mmol/L (98-108); Creatinine, Blood 1.08 mg/dL (0.60-1.20); Glomerular Filtration Rate >60 (60-); Glucose, Blood 128 mg/dL (70-99); Potassium, Blood 3.9 mmol/L (3.5-5.5); Sodium, Blood 148 mmol/L (136-145); Total Protein, Blood 5.6 g/dL (6.4-8.2)
--- NOTE | 2021-09-02 06:11 | NUR ---
SHIFT SUMMARY PATIENT RESPONDS TO TOUCH, ORIENTED X NONE. MOVES ALL EXTREMETIES. MOANS AND IS DIFFICULT TO UNDERSTAND. MEDICATED ONCE PER EMAR FOR AGITATION. 02 SATS 93% ON 3L VIA NC. LS COARSE THROUGHOUT. SUCTIONED AND ORAL CARE DONE Q4 HOURS. HR SR @90s. BP STABLE. YAP DRAINING TO GRAVITY. TEMP UP TO 101.7, ICE PACKS AND FAN APPLIED, TEMP NOW DOWN TO 99.1. NO BM THIS SHIFT.
--- NOTE | 2021-09-02 17:09 | NUR ---
SHIFT SUMMARY NO ACUTE CHANGES THIS SHIFT. PT REMAINS SOMNOLENT WITH PERIODS OF AGITATION. PT DOES NOT FOLLOW ANY DIRECTIONS OR SPEAK ANY SENSICAL WORDS. PT MOANS OUT AT TIMES. PT WITH MOIST WEAK COUGH. PT DEEP SUCTIONED WITH MINIMAL SPUTUM OUTPUT NOTED. DOBHOFF REMAINS IN PLACE WITH TF INFUSING. D5 1/2 NS INFUSING THROUGH PERIPHERAL IV AT 100 ML/HR. YAP REMAINS IN PLACE WITH YELLOW URINE OUTPUT NOTED. PT WITHOUT BM THIS SHIFT. ATTENDS REMAIN IN PLACE. PT WITH CHAVEZ VEST AND SBW RESTRAINTS IN PLACE. VITAL SIGNS STABLE. PT ON 2L O2 NC. WILL CONTINUE TO MONITOR AND REPORT OFF TO ONCOMING RN.
--- NOTE | 2021-09-02 20:55 | NUR ---
ASSUMED CARE AT 1900 PATIENT IS ALERT AND AGITATED, PULLING AT RESTRAINTS AND ATTEMPTING TO GET OUT OF BED. ORIENTED X NONE. ONE WORD ANSWERS AT TIMES, PER CAREGIVER PATIENT UNABLE TO VERBALLY COMMUNICATE AND USUALLY MOANS. CAREGIVER PATTIE SPOKE WITH PATIENT OVER THE PHONE IN HOPES IT WOULD HELP WITH HIS AGITATION. MEDICATED FOR AGITATION PER EMAR. 02 SATS 95% ON 3L VIA NC. LUNGS COARSE IN UPPER AIRWAY, CLEAR TO DIM THROUGH REST OF LUNGS. ST 104. BP STABLE. YAP DRAINING TO GRAVITY. TF INF, GLUCERNA @25 MLS HR WITH 30 MLS EVERY 4 HOUR FLUSHES. WILL INCREASE TF PER ORDERS. REPOSITONED PATIENT MULTIPLE TIMES, BOOSTED IN BED, ORAL CARE DONE. CATH CARE DONE. SEE SHIFT ASSESSMENT FOR MORE DETAIL.
--- NOTE | 2021-09-02 22:28 | NUR ---
TUBE FEED INCREASED TO 45 MLS/HR. FLUSHES CHANGED TO 110 MLS FLUSHES Q4 HOURS.
--- NOTE | 2021-09-03 03:13 | NUR ---
TUBE FEED INCREASED TO GOAL RATE OF 70 MLS/HR.
[2021-09-03 03:51] LABS: BASOPHILS ABSOLUTE AUTO 0.02 K/mm3 (0.00-0.23); BASOPHILS PERCENT AUTO 0 % (0-2); EOSINOPHILS ABSOLUTE AUTO 0.14 K/mm3 (0.00-0.68); EOSINOPHILS PERCENT AUTO 1 % (0-6); Hematocrit 23.8 % (37.0-53.0); Hemoglobin 7.3 g/dL (13.5-17.5); IMMATURE GRAN ABSOLUTE AUTO 0.12 K/mm3 (0.00-0.10); IMMATURE GRAN PERCENT AUTO 1 % (0-1); LYMPHOCYTES ABSOLUTE AUTO 1.38 K/mm3 (0.84-5.20); LYMPHOCYTES PERCENT AUTO 10 % (21-46); MONOCYTES ABSOLUTE AUTO 0.76 K/mm3 (0.16-1.47); MONOCYTES PERCENT AUTO 5 % (4-13); Mean Corpuscular HGB 29.4 pg (26.0-34.0); Mean Corpuscular HGB Conc 30.7 g/dL (31.5-36.5); Mean Corpuscular Volume 96 fL (80-100); Mean Platelet Volume 10.9 fL (9.1-12.4); NEUTROPHILS PERCENT AUTO 83 % (41-73); NRBC ABSOLUTE 0.02 K/mm3 (0.00-0.02); NRBC Auto 0.1 /100 WBC (0.0-0.2); Platelet Count 268 K/mm3 (150-400); RDW Coefficient Variation 17.1 % (11.7-14.2); RDW Standard Deviation 57.6 fL (35.1-46.3); Red Blood Cell Count 2.48 M/mm3 (4.30-5.90); White Blood Cell Count 14.52 K/mm3 (4.00-11.30)
[2021-09-03 04:16] LABS: Alanine Aminotransfer (ALT/SGP 52 U/L (12-78); Albumin, Blood 2.3 g/dL (3.4-5.0); Albumin/Globulin Ratio 0.7 (0.8-1.8); Alk Phos 77 U/L (50-136); Anion Gap 6 mmol/L (6-16); Aspartate Aminotrans (AST/SGOT 43 U/L (12-37); Bilirubin, Total 0.7 mg/dL (0.1-1.0); Blood Urea Nitrogen 18 mg/dL (8-24); Bun/Creatinine Ratio 17.6 (12.0-20.0); CO2, Blood 26 mmol/L (21-32); Calcium, Blood 7.8 mg/dL (8.5-10.1); Chloride, Blood 112 mmol/L (98-108); Creatinine, Blood 1.02 mg/dL (0.60-1.20); Globulin, Blood 3.3 g/dL (2.2-4.0); Glomerular Filtration Rate >60 (60-); Glucose, Blood 131 mg/dL (70-99); Magnesium, Blood 2.6 mg/dL (1.6-2.4); Phosphorus, Blood 4.3 mg/dL (2.5-4.9); Potassium, Blood 3.4 mmol/L (3.5-5.5); Sodium, Blood 144 mmol/L (136-145); Total Protein, Blood 5.6 g/dL (6.4-8.2)
--- NOTE | 2021-09-03 06:03 | NUR ---
SHIFT SUMMARY PATIENT RESPONDS TO TOUCH, ORIENTED X NONE. MOANS/MUMBLES, UNABLE TO FOLLOW COMMANDS. MEDICATED FOR AGITATION PER EMAR. 02 SATS 97% ON 4L. PATIENT WAS NEEDING 6L 02, NT SUCTIONED AND OXYGEN REQUIREMENTS DECREASED. LS COARSE T/O. ORAL CARE PROVIDED FREQUENTLY D/T THICK MUCOUS PRODUCTION. HR SR @90s. BP STABLE. RECTAL TEMP D/T FEVERS. TYLENOL GIVEN AND ICE PACKS. TEMP DECREASED. YAP DRAINING TO GRAVITY, DEBBIE. TF INF AT GOAL RATE 70 MLS/HR. REPOSITIONED Q2 HOURS.
--- NOTE | 2021-09-03 16:41 | NUR ---
Spoke with [facility], Chepe, ICU nurses Cassandra and Vishal and pt's caregiver, Jocy, via phone this afternoon. Nursing is requesting assistance with advanced care planning for Solis. Solis is currently being cared for in the ICU. Spoke with Chepe in CM. At this time they are not currently pursuing guardianship for Solis. Pt's ad terminal makeup operator caregiver, Jocy, and pt's mother have been making decisions about his care. Jocy and Solis's mother attended an [facility] appointment recently for assistance with filling out AD/POLST paperwork. Left HIPAA appropriate message with [facility] office [phone] to obtain a copy of the AD/POLST. Also spoke with Ceasar Rojas [facility] office, pt's PCP, to see if they have received a copy of this paperwork from the [facility] program. Thirty-five minute phone conversation with Jocy answering her questions and discussing disease trajectory for dementia. She states she is unable to come up with the AD/POLST paperwork at this time. Jocy did state that the paperwork was filled out at the appoinment with the [facility] program with [facility]. Inquired with her about coming in to see Solis and to attend a meeting with PC, CM and MD and pt's mother via phone (as his mother lives out of state according to ) to help determine a decision maker and a plan for care moving forward. Jocy states she has not see Solis since he was taken via ambulance to the hospital for this admission. Jocy has been receiving updates from ICU staff on Solis's condition. Jocy has been hesitant to visit the hospital as she states that she has not been vaccinated for COVID and is unsure of the hospital policy. Explained current hospital visitor policy and Jocy states that she will consider coming in for a meeting but it would likely not be until Tuesday. Cassandra, pt's nurse, updated on conversation. Will plan to have PC nurse follow up with pt and family/caregiver during the next few days. Jocy plans to continue to follow up with ICU nurses for updates.
--- NOTE | 2021-09-03 17:50 | NUR ---
NO ACUTE CHANGES THIS SHIFT. PT REMAINS CONFUSED, MUMBLES INCOHERENTLY. OCCASIONALLY WILL REPLY TO QUESTIONS WITH A LEGIBLE ONE WORD ANSWER. MOVES ALL EXTREMITIES. REMAINS IN RESTRAINTS FOR LINE PROTECTION. HE RECEIVED 2 DOSES OF PRN ATIVAN THIS SHIFT FOR AGITATION. NT SUCTIONING COMPLETED PRN. SUCTIONING MODERATE - LARGE THICK PATEL SPUTUM, DISCUSSED WITH MD. PT HAS OCCASIONAL PRODUCTIVE COUGH. LUNGS CLEAR AFTER SUCTIONING. SATS TOLERATE ROOM AIR WHEN AWAKE, 3LNC ADDED FOR DESATS WHILE SLEEPING. SINUS RHYTHM. TREATED FOR FEVER WITH TYELENOL X1 THIS SHIFT. TF RUNNING AT GOAL RATE 70ML/HR. YAP WITH 750CC CLEAR YELLOW-ORANGE OUTPUT.
--- NOTE | 2021-09-03 20:19 | NUR ---
ASSUMED CARE AT 1900 MOVED PATIENT FROM ICU 3 TO ICU 11. PATIENT IS ALERT/RESPONDS TO VERBAL STIMULI, APPEARS AGITATED PULLING AT TRESTRAINTS. MOANS AND IS UNABLE TO FOLLOW COMMANDS. 02 SATS 98% ON 2L VIA NC. NASAL TRUMPET IN PLACE FOR NT SUCTIONING TO HELP PATIENT CLEAR THICK PATEL MUCOUS. HR SR @88, BP STABLE. YAP DRAINING TO GRAVITY, DEBBIE URINE. TUBE FEED AT GOAL RATE 70 MLS/HR WITH 110 MLS FLUSHES Q4 HOURS. PATIENT HAD BM. REPSOTIONED. ORAL CARE DONE. CATH CARE DONE. SEE SHIFT ASSESSMENT FOR MORE DETAIL.
[2021-09-04 03:21] LABS: BASOPHILS ABSOLUTE AUTO 0.02 K/mm3 (0.00-0.23); BASOPHILS PERCENT AUTO 0 % (0-2); EOSINOPHILS ABSOLUTE AUTO 0.38 K/mm3 (0.00-0.68); EOSINOPHILS PERCENT AUTO 3 % (0-6); Hematocrit 22.4 % (37.0-53.0); Hemoglobin 7.1 g/dL (13.5-17.5); IMMATURE GRAN ABSOLUTE AUTO 0.11 K/mm3 (0.00-0.10); IMMATURE GRAN PERCENT AUTO 1 % (0-1); LYMPHOCYTES ABSOLUTE AUTO 0.83 K/mm3 (0.84-5.20); LYMPHOCYTES PERCENT AUTO 6 % (21-46); MONOCYTES PERCENT AUTO 5 % (4-13); Mean Corpuscular HGB 29.2 pg (26.0-34.0); Mean Corpuscular HGB Conc 31.7 g/dL (31.5-36.5); Mean Corpuscular Volume 92 fL (80-100); Mean Platelet Volume 10.4 fL (9.1-12.4); NEUTROPHILS ABSOLUTE AUTO 11.71 K/mm3 (1.96-9.15); NEUTROPHILS PERCENT AUTO 85 % (41-73); NRBC ABSOLUTE 0.02 K/mm3 (0.00-0.02); NRBC Auto 0.1 /100 WBC (0.0-0.2); Platelet Count 295 K/mm3 (150-400); RDW Coefficient Variation 16.3 % (11.7-14.2); RDW Standard Deviation 53.7 fL (35.1-46.3); Red Blood Cell Count 2.43 M/mm3 (4.30-5.90); White Blood Cell Count 13.75 K/mm3 (4.00-11.30)
[2021-09-04 03:42] LABS: Alanine Aminotransfer (ALT/SGP 55 U/L (12-78); Albumin, Blood 2.3 g/dL (3.4-5.0); Albumin/Globulin Ratio 0.7 (0.8-1.8); Alk Phos 92 U/L (50-136); Anion Gap 4 mmol/L (6-16); Aspartate Aminotrans (AST/SGOT 33 U/L (12-37); Bilirubin, Total 0.3 mg/dL (0.1-1.0); Blood Urea Nitrogen 18 mg/dL (8-24); Bun/Creatinine Ratio 19.4 (12.0-20.0); CO2, Blood 25 mmol/L (21-32); Calcium, Blood 7.7 mg/dL (8.5-10.1); Chloride, Blood 113 mmol/L (98-108); Creatinine, Blood 0.93 mg/dL (0.60-1.20); Globulin, Blood 3.5 g/dL (2.2-4.0); Glomerular Filtration Rate >60 (60-); Glucose, Blood 119 mg/dL (70-99); Potassium, Blood 3.7 mmol/L (3.5-5.5); Sodium, Blood 142 mmol/L (136-145); Total Protein, Blood 5.8 g/dL (6.4-8.2)
--- NOTE | 2021-09-04 05:54 | NUR ---
SHIFT SUMMARY PATIENT IS ALERT AND ORIENTED X NONE. UNABLE TO FOLLOW COMMANDS, MOVES ALL EXTREMETIES, UNABLE TO COMMUNICATE/MOANS. 02 SATS 97% ON 4L VIA NC. LS COARSE IN UPPER LOBES. NT SUCTIONED PRN, THICK PATEL SECRETIONS. HR SR @90s. BP STABLE. YAP DRAINING TO GRAVITY. PATIENT HAD LARGE BM, SOFT AND DARK BROWN. ORAL CARE AT LEAST Q4. TURNED Q2 HOURS. TUBE FEED INF AT GOAL RATE OF 70 MLS/HR WITH 110 MLS FLUSHES Q4 HOURS.
--- NOTE | 2021-09-04 09:29 | NUR ---
Requested copy of [facility] advance directive that pt has on file.
--- NOTE | 2021-09-04 15:32 | NUR ---
[facility] team called back and stated no documents on decision maker needs. Will ask them again to fax his advance directive, Review of pt with icu team and nurse. Chart review of pt care and physiciatic report. spent therputic time at bedside with patient he was able to repond to some of my questions. Between history his caregiver gave me and the physician notes this pt history presents as a very difficult life of disability and addiction. spent therputic time talking to pt and soothing him He may be having some pain or discomfort or possible some wernickes disease. Suggest hospice care for this patient his fast score is 7c
--- NOTE | 2021-09-04 17:30 | NUR ---
NO ACUTE CHANGES THIS SHIFT. NEURO: DROWSY, RESPONDS TO VOICE. FREQUENTLY RESTLESS. MUMBLES, OCCASIONALLY CRIES OUT. ANSWERS SOME SIMPLE QUESTIONS. FOLLOWS COMMANDS INTERMITTENTLY. TREATED FOR PAIN WITH TORADOL X1. RESP: 4L NC WHILE SLEEPING. NT SUCTIONED MULTIPLE TIMES. SPUTUM AMOUNT APPEARED TO DECREASE THROUGHOUT SHIFT. COLOR IS CLEAR - PATEL. COUGHS SPONTANEOUSLY. CV: SR. BP APPROPRIATE. FEVER TREATED WITH TYELENOL THIS MORNING AND HAS IMPROVED SINCE. SEE VITALS. GI/: ADEQUATE UOP. NO BM. TF RUNNING AT GOAL 70ML/HR.
--- NOTE | 2021-09-04 19:45 | NUR ---
ASSUMPTION OF CARE RECEIVED REPORT FROM MASOOD MENESES AT 1900. PT ON BEDREST, WEARING CHAVEZ AND BILATERAL WRIST RESTRAINTS. ALERT TO SELF ONLY, ABLE TO OPEN MOUTH TO ASSIST WITH ORAL CARE. FEBRILE AT 99.5. HR IS NSR, RATE IN 80'S, BP STABLE. 4L NC, SPO2 >92%. NASAL TRUMPET IN PLACE TO LEFT NARE, SUCTION PRN. LUNGS ARE COARSE, VERY WEAK COUGH EFFORT. DOBHOFF IN PLACE TO RIGHT NARE AT 70CM. TUBE FEED OF GLUCERNA 1.2 AT GOAL OF 70ML/HR WITH Q4H 110ML H2O FLUSHES. YAP PATENT, DRAINING CLEAR, YELLOW URINE. BILATERAL SCD'S IN PLACE. FOAM HEEL PROTECTORS ON BLE. 18G IN RIGHT AC, SL. ORDERS REVIEWED, WILL TREAT PRESCRIBED.
--- NOTE | 2021-09-04 22:21 | NUR ---
PT'S MOTHER, RICH, CALLED AND WAS UPDATED ON THE PATIENT. SHE REQUESTED TO TALK TO HIM ON THE TELEPHONE IN THE ROOM, AND PT RESPONDED TO HER VOICE, BUT REMAINS UNABLE TO RESPOND. HE IS CURRENTLY RESTING IN BED, BUT NOT FULLY ASLEEP.
--- NOTE | 2021-09-05 05:55 | NUR ---
PT SLEPT OFF AND ON THROUGHOUT SHIFT. MEDICATED WITH IV ATIVAN X1, MINIMAL EFFECT. PT REMAINS ALERT TO SELF ONLY, FOLLOWS COMMANDS MINIMALLY. CONTINUES WITH AGITATION AND REPOSITIONING SEEMS TO HELP. LUNGS COARSE, BUT IMPROVED WITH NT SUCTIONING. COUGH EFFORT HAS IMPROVED T/O SHIFT. 4L NC REMAINS ON, SPO2 >92%. HR REMAINS SR, RATE IN 80-90'S. BP STABLE WITH OCCASIONAL SOFT PRESSURES. YAP PATENT, DRAINING DARK YELLOW URINE, 750ML OUT THIS SHIFT. TUBE FEED REMAINS AT GOAL. Q4 ORAL CARE DONE, AND Q2 TURNS WITH REPOSITIONING OF SPO2 PROBE, BOOSTED FREQUENTLY. 18G TO RAC REMAINS SL. WILL REPORT TO ONCOMING SHIFT WHEN AVAILABLE.
[2021-09-05 06:04] LABS: BASOPHILS ABSOLUTE AUTO 0.02 K/mm3 (0.00-0.23); BASOPHILS PERCENT AUTO 0 % (0-2); EOSINOPHILS ABSOLUTE AUTO 0.28 K/mm3 (0.00-0.68); EOSINOPHILS PERCENT AUTO 3 % (0-6); Hematocrit 22.5 % (37.0-53.0); Hemoglobin 7.1 g/dL (13.5-17.5); IMMATURE GRAN ABSOLUTE AUTO 0.04 K/mm3 (0.00-0.10); IMMATURE GRAN PERCENT AUTO 0 % (0-1); LYMPHOCYTES ABSOLUTE AUTO 1.03 K/mm3 (0.84-5.20); LYMPHOCYTES PERCENT AUTO 11 % (21-46); MONOCYTES ABSOLUTE AUTO 0.67 K/mm3 (0.16-1.47); MONOCYTES PERCENT AUTO 7 % (4-13); Mean Corpuscular HGB 29.2 pg (26.0-34.0); Mean Corpuscular HGB Conc 31.6 g/dL (31.5-36.5); Mean Corpuscular Volume 93 fL (80-100); Mean Platelet Volume 10.6 fL (9.1-12.4); NEUTROPHILS ABSOLUTE AUTO 7.45 K/mm3 (1.96-9.15); NEUTROPHILS PERCENT AUTO 78 % (41-73); Platelet Count 360 K/mm3 (150-400); RDW Coefficient Variation 16.4 % (11.7-14.2); RDW Standard Deviation 54.3 fL (35.1-46.3); Red Blood Cell Count 2.43 M/mm3 (4.30-5.90); White Blood Cell Count 9.49 K/mm3 (4.00-11.30)
--- NOTE | 2021-09-05 06:14 | NUR ---
CALL TO DR. ALEMAN RE: RECENT HYPOTENSION. ORDERS FOR 500ML NS BOLUS.
[2021-09-05 06:21] LABS: Anion Gap 7 mmol/L (6-16); Blood Urea Nitrogen 19 mg/dL (8-24); Bun/Creatinine Ratio 21.7 (12.0-20.0); CO2, Blood 24 mmol/L (21-32); Calcium, Blood 7.6 mg/dL (8.5-10.1); Chloride, Blood 112 mmol/L (98-108); Creatinine, Blood 0.88 mg/dL (0.60-1.20); Glomerular Filtration Rate >60 (60-); Glucose, Blood 117 mg/dL (70-99); Potassium, Blood 3.7 mmol/L (3.5-5.5); Sodium, Blood 143 mmol/L (136-145)
--- NOTE | 2021-09-05 07:54 | NUR ---
Assumed care of pt at 0700. Bedside report received from Beth CORREIA. Pt is alert. Speech incomprehensible. Does not follow commands. Unable to verbalize needs. Pt in vest restraint and bilat soft wrist restraints. Dobhoff and NPA in place. 4 LPM NC. SpO2 90% or greater. SR per monitor. BP stable, fluid bolus complete.
--- NOTE | 2021-09-05 08:41 | NUR ---
BP LOW Call placed to Dr Nath. Orders received for additional 500 mL fluid bolus and maintenance fluids.
--- NOTE | 2021-09-05 10:22 | NUR ---
Dr Nath in to see patient. Discussed improvement in BP. Provider stated pt appropriate for PCU status. Bedbath complete.
--- NOTE | 2021-09-05 13:08 | NUR ---
pt more alert at times. has to have nt suction. will review hospice with team on tuesday. need decision maker.
--- NOTE | 2021-09-05 17:04 | NUR ---
SUMMARY Neuro: Pt alert. Opens eyes spontaneously. Often speaks, speech incomprehensible. Responds to questions but not clear that response is appropriate. Unable to communicate needs. Occasionally follows directions, opening mouth when instructed to do so for oral care. Does not help with repositions, however. Musculoskeletal: Q2H positioning provided for pressure ulcer prevention, pt often repositions self off of pillows, however. Pt slides down in bed, and pulls against restraints enough to significantly loosen them. Pt often sits up in bed and places legs over the edge of bed, attempting to get out of bed. Does not get back into bed when instructed to do so. Therefore, pt remains in bilateral wrist restraints and vest restraint. Respiratory: SpO2 100% on room air. Lungs coarse t/o. Pt continues to have loose, moist cough that is not productive on its own. Pt has required NT suctioning Q2H, otherwise pt has trouble maintaining oxygen saturations. Large amounts of stringy, winston sputum retrieved with NT suction. NPA remains in place to left nare. Cardiac: SR per monitor. BP stable after 500 mL fluid bolus this shift and addition of maintenance fluids. No edema. GI: Tolerating tube feeds well. 1 formed BM today, incontinent. : Good output from sainz cathter Skin: Unchanged from initial assessment. New mepilex heel dressings placed as well as pink foam "eggcrate" to feet. Psychosocial: Unable to assess due to pt's incomprehensible speech, however pt is not agitated or combative.
--- NOTE | 2021-09-05 20:00 | NUR ---
ASSUMED CARE RECEIVED REPORT FROM MASOOD CHAUHAN AT 1900. PT IS ALERT TO SELF ONLY, SPEECH SEEMS TO HAVE IMPROVED SINCE YESTERDAY, BUT STILL SLURRED AND DIFFICULT TO UNDERSTAND. ABLE TO RESPOND YES/NO TO QUESTIONS AND FOLLOW SIMPLE COMMANDS BUT NOT CONSISTENTLY. LOW GRADE TEMP OF 99.1, PRN TYLENOL AVAILABLE. HE IS ON ROOM AIR, SPO2 >95%. THE NASAL TRUMPET REMAINS IN PLACE TO LEFT NARE FOR NT SUCTION. THICK PATEL SECRETIONS WITH NT SUCTIONING. PT'S COUGH EFFORT HAS IMPROVED. LUNGS ARE CLEAR T/O. HR IS NSR TO ST, RATE 90-100'S. BP STABLE. LR RUNNING AT 125ML/HR, HOWEVER RATE CHANGED TO 150ML/HR PER ORDERS. YAP PATENT, DRAINING TO GRAVITY. HE REMAINS IN BILATERAL SOFT WRIST RESTRAINTS AND CHAVEZ VEST HE CONTINUES TO BE AGIATED AND PULLING AT LINES, ATTEMPTING TO GET OUT OF BED. ORDERS REVIEWED, WILL TREAT PRESCRIBED.
[2021-09-06 05:06] LABS: Hematocrit 23.2 % (37.0-53.0); Hemoglobin 7.3 g/dL (13.5-17.5)
--- NOTE | 2021-09-06 06:51 | NUR ---
NO ACUTE CHANGES THIS SHIFT. HE SLEPT MINIMALLY THROUGHOUT THE NIGHT. HE CONTINUES TO REMAIN ALERT TO SELF AND MUMBLES INCOHERENT SPEECH. SHIFTS IN BED FREQUENTLY REQUIRING REPOSITIONING OFTEN. NT SUCTIONING DONE ABOUT Q4H ALONG WITH ORAL CARE. NASAL TRUMPET REMAINS IN PLACE. HE WILL SPONTANEOUSLY DESAT INTO 70'S, BUT IS VERY QUICK TO RECOVER. ON ROOM AIR, ALL VITAL SIGNS STABLE T/O SHIFT. YAP PATENT, DRAINING OVER 3L OUTPUT THIS SHIFT. LR RUNNING AT 150ML/HR INTO LEFT PERIPHERAL IV. REMOVED RIGHT WRIST IV D/T PT PULLING IN RESTRAINTS. FEBRILE WITH TMAX OF 100.1. WILL REPORT TO ONCOMING SHIFT.
--- NOTE | 2021-09-06 11:39 | NUR ---
UNABLE TO ASSESS RISK FOR SUICIDAL IDEATION DUE TO ALTERED MENTAL STATUS, ACUTE ON CHRONIC
--- NOTE | 2021-09-06 17:25 | NUR ---
SHIFT SUMMARY: NEURO: PT SLEPT DURING AM AND HIS AGITATION/RESTLESSNESS GRADUALLY DECREASED. AWAKE DURING AFTERNOON, PLEASANT, CONFUSED, FOLLOWING SIMPLE 1-STEP COMMANDS AND REDIRECTABLE. DENIES PAIN AT THIS TIME. CONTINUES TO PULL AT ANY TUBING IF OUT OF RESTRAINTS. SMILES, INTERACTS WITH STAFF. LORAZEPAM CHANGED FOR HS TO ALLOW FOR IMPROVED SLEEPING PER MD. CARDIAC: SR NO ECTOPY NOTED. DISCONTINUED LR FROM THIS AM. 98.1 THROUGHOUT SHIFT. RESP: ON RA THROUGHOUT SHIFT. 98-99% SPO2 WITH OCCASIONAL DESATURATION, NON-SUSTAINED, WHILE SLEEPING. NONPRODUCTIVE COUGH, OCCASIONAL. GI: TF CONTINUES AT GOAL OF 70/HR WITH 110ML Q4HR FLUSH. BOWEL MOVEMENT X 2 DURING SHIFT. : GOOD UOP. PER MD WILL CHECK ELECTROLYTES IN AM. INTEG: NO CHANGE. PT MAKES FREQUENT MAJOR POSITION CHANGES BY HIMSELF IN BED. SKIN CARE PERFORMED X MULTIPLE EVENTS DUE TO BOWEL MOVEMENTS. PSYCH: NO FAMILY/CAREGIVER CONTACT WITH THIS RN SO FAR THIS SHIFT.
--- NOTE | 2021-09-06 18:56 | NUR ---
review of pt with nursing.
--- NOTE | 2021-09-06 22:18 | NUR ---
ASSUMED CARE @1900 PATIENT IS ALERT AND ORIENTED TO SELF AND SOMETIMES FOLLOWS SIMPLE COMMANDS. SPEECH IS DIFFICULT TO UNDERSTAND BUT ABLE TO FORM WORDS AT TIMES. PATIENT IS VERY AGITATED YELLING AND CURSING AT STAFF CONSTANTLY TRYING TO GET OUT OF BED. MEDICATED PER EMAR. 02 SATS 98% ON RA, STRONG NONPRODUCTIVE COUGH. HR SR-ST 90s-115. BP STABLE. YAP DRAINING TO GRAVITY, CLEAR YELLOW. TF INF AT GOAL RATE 70 MLS/HR WITH 110 MLS FLUSHES Q4 HOURS. SEE SHIFT ASSESSMENT FOR MORE DETAIL.
[2021-09-07 03:52] LABS: Albumin, Blood 2.2 g/dL (3.4-5.0); Anion Gap 6 mmol/L (6-16); Blood Urea Nitrogen 15 mg/dL (8-24); Bun/Creatinine Ratio 18.1 (12.0-20.0); CO2, Blood 26 mmol/L (21-32); Calcium, Blood 8.3 mg/dL (8.5-10.1); Chloride, Blood 108 mmol/L (98-108); Creatinine, Blood 0.83 mg/dL (0.60-1.20); Glomerular Filtration Rate >60 (60-); Glucose, Blood 111 mg/dL (70-99); Phosphorus, Blood 3.9 mg/dL (2.5-4.9); Potassium, Blood 3.8 mmol/L (3.5-5.5); Sodium, Blood 140 mmol/L (136-145)
--- NOTE | 2021-09-07 06:29 | NUR ---
SHIFT SUMMARY PATIENT REMAINS ALERT AND ORIENTED TO SELF ONLY. AGITATED THROUGH THE NIGHT. MEDICATED PER EMAR BUT PATIENT SLEPT ABOUT 1 HOUR MAYBE. 02 SATS >95% ON RA. HR SR @ 90s. BP STABLE. TF REMAINS AT GOAL RATE. YAP DRAINING TO GRAVITY. PATIENT BOOSTED IN BED AND REPOSITIONED FREQUENTLY. MOVES HIS OWN HIPS. BED BED CHANGE DONE. ORAL CARE DONE Q4 HOURS.
--- NOTE | 2021-09-07 07:23 | NUR ---
ASSUMED CARE: PT RESTING AT THIS TIME, MOANING AT TIMES, NO WORDS NOTED. PT ORIENTED TO NONE. DOES NOT RESPOND WHEN NAME IS STATED AND FIDGETS IN BED FREQUENTLY. CHAVZE AND SOFT WRIST RESTRAINTS IN PLACE DUE TO CONFUSION AND PULLING AT LINES. ON RA, 97%, NSR AT 85 AT THIS TIME. TF RUNNING PER DOBHOFF. NBED ALARM ON AND FEET ELEVATED. NO ACUTE NEEDS AT THIS TIME.
--- NOTE | 2021-09-07 11:50 | NUR ---
PT'S CAREGIVER AT BEDSIDE AND HAD QUESTIONS FOR , 1ST PRESSMAN AND PALLIATIVE CARE. DR GODFREY HAS BEEN NOTIFIED TO COME SPEAK WITH SQL DATABASE ADMINISTRATOR. CARE MANAGEMENT CAME TO SEE PT. PALLIATIVE CARE NURSE WILL COME TO SEE PT WHEN ABLE
--- NOTE | 2021-09-07 12:32 | NUR ---
PT HAD BM THAT WAS BLACK AND TARRY. CALL TO DR GODFREY TO SEE IF GUAIAC WOULD BE HELPFUL DUE TO PT HAVING DECREASED H/H WITH UNKNOWN CAUSE. SAMPLE SENT TO LAB. DR GODFREY AT BEDSIDE TALKING TO FOUR SLIDE MACHINE OPERATOR AT THIS TIME.
[2021-09-07 13:11] LABS: Stool Occult Blood Guaiac 1 Pos (Neg)
--- NOTE | 2021-09-07 13:53 | NUR ---
CALL TO DR GODFREY TO LET HIM KNOW ABOUT POSITIVE GUAIC. STATES HE WILL VERIFY WITH PALLIATIVE CARE TO CONFIRM PLAN FOR PT BEFORE PROCEEDING WITH GI CONCERNS
--- NOTE | 2021-09-07 15:17 | NUR ---
DR GODFREY CALLED BACK AFTER SPEAKING WITH PT'S SENIOR PROJECT MANAGER AND MOTHER ABOUT GI BLEEDING. THEY TOLD DR THEY NEEDED TO DISCUSS IF FURTHER INTERVENTIONS WILL BE DONE. AWAITING CALL BACK FROM THEM
--- NOTE | 2021-09-07 16:12 | NUR ---
CALL TO DR GODFREY REGARDING PT'S AGITATION. PT WAS PULLING AGAINST ALL RESTRAINTS AND ROCKING THE BED. DR INSTRUCTED TO GIVE EXTRA DOSE OF ATIVAN. WILL MONITOR FOR EFFECT
--- NOTE | 2021-09-07 18:41 | NUR ---
SHIFT SUMMARY: PT HAS REQUIRED RESTRAINTS ALL DAY AND 2 DOSES OF IV ATIVAN DUE TO BEING AGITATED AND TRYING TO CLIMB OUT OF BED AND PULL AT LINES. PT BEGAN TO HAVE BLACK TARRY STOOL WITH A POSITIVE GUIAC. DR GODFREY SPOKE WITH PT'S FAMILY WHO WAS GOING TO DISCUSS AND DETERMINE IF THEY WERE GOING TO TREAT OR GO FOR COMFORT CARE. AWAITING CALL BACK. PT'S VSS AT THIS TIME. NO FURTHER NEEDS AT PRESENT
--- NOTE | 2021-09-07 21:32 | NUR ---
ASSUMED CARE AT 1900 PATIENT IS ALERT AND ORIENTED TO SELF. UNABLE TO FOLLOW COMMANDS SUCH OPENING HIS MOUTH FOR ORAL CARE. AGITATED YELLING AND PULLING AT RESTRAINTS. MEDICATED PER EMAR. 02 SATS >95% ON RA. HR SR @90s, BP STABLE. CHANGED ATTENDS, LINEN AND REPOSITIONED PATIENT. YAP DRAINING. PATIENT HAD SMALL BM DARK BROWN/BLACK. TUBE FEED INF AT GOAL RATE. OF 70 MLS/HR WITH 110 MLS FLUSHES Q4 HOURS.
[2021-09-08 04:03] LABS: Hematocrit 25.8 % (37.0-53.0); Hemoglobin 7.9 g/dL (13.5-17.5)
--- NOTE | 2021-09-08 06:02 | NUR ---
SHIFT SUMMARY PATIENT IS ALERT AND ORIENTED TO SELF. UNABLE TO FOLLOW COMMANDS AND AGITATED EASILY. PATIENT WAS ABLE TO SLEEP 4-5 HOURS THROUGH THE NIGHT. MEDICATED WITH ATIVAN PER EMAR FOR AGITATION THIS AM. 02 SATS >95% ON RA. ORAL CARE DONE Q4. HR SR @70s. BP STABLE. YAP DRAINING TO GRAVITY. TUBE FEED REMAINS AT GOAL RATE. REPOSITIONED Q4 HOURS.
--- NOTE | 2021-09-08 07:30 | NUR ---
ASSUMED CARE: PT RESTING IN BED WITH BILATERAL WRIST RESTRAINTS AND CHAVEZ VEST IN PLACE. ON RA, NSR ON TELE. YAP CATH AND DOBHOFF IN PLACE. NO ACUTE NEEDS AT THIS TIME.
--- NOTE | 2021-09-08 15:10 | NUR ---
Received a call from pt's caregiver Jocy. She reports she and the pt's mother have discussed pt's current GI bleed, and they feel it would not make sense to pursue treatment of the bleed, given his current condition and comorbidities. Jocy v/u that once comfort care is initiated, the patient will likely decline fairly quickly. She states she and pt's mom do not want to continue "making him suffer unnecessarily." I verbalized understanding of this point, and she made one request--that I speak to Dr Esteban about the having some sort of testing done to document whether the pt has any type of cancer. She states she has a "cancer insurance policy" on the pt. I passed the request along to Dr. Hernandez, who is covering for DR. Esteban. He states he will put in the comfort care orders. Placed a call to Wendy Cobb, ICU Bedside RN today.
--- NOTE | 2021-09-08 15:27 | NUR ---
PALLIATIVE CARE NURSE SPOKE WITH PT'S ADMISSION DISCHARGE RN WHO STATED PT'S MOTHER WANTED PT ON COMFORT CARE. PALLIATIVE CARE NURSE CALLED RESIDENT WHO STATED HE WILL BE PUTTING ORDERS IN. PT MEDICATED WITH PO ATIVAN FOR AGITATION. DR BOYD CALLING PT'S MOTHER TO VERIFY COMFORT CARE WISHES.
--- NOTE | 2021-09-08 16:57 | NUR ---
PT'S MOTHER CALLED BACK TO DISCUSS WITH DR MATT VILLASENOR. MOTHER STATES SHE WANTS TO FIND OUT WHERE THE GI BLEEDING IS COMING FROM. EXPLAINED TO MOTHER THAT PT IS CURRENTLY RESTRAINED WITH A FEEDING TUBE AND PUTTING OUT BLACK TARRY STOOL BUT H AND H IS STABLE. MOTHER STATED SHE STILL WANTED TO FIND THE CAUSE OF HIS BLEEDING. DR BOYD SPOKE WITH HER AND SHE STATED THAT SHE DOES NOT WANT COMFORT CARE. CALL TO PALLIATIVE CARE NURSE WHO STATED SHE WOULD CALL PT'S MOTHER WELL
[2021-09-08 17:14] LABS: Free Thyroxine 1.42 ng/dL (0.70-1.60)
[2021-09-08 17:15] LABS: Thyroid Stimulating Hormone 2.53 uIU/mL (0.360-4.800); Triiodothyronine, Free 2.21 pg/mL (2.18-3.98)
--- NOTE | 2021-09-08 18:46 | NUR ---
SHIFT SUMMARY: CALLED PT'S MOTHER TO ASK MRI QUESTIONS AND ASKED IF SHE HAD ANY QUESTIONS SO FAR. STATED SHE HAD QUESTIONS ABOUT COMFORT CARE. SPECIFICALLY, SHE WAS WORRIED ABOUT HIM EATING. STATED TO HER THAT COMFORT CARE PATIENTS ARE NOT TUBE FED BUT IF HE WAS AWAKE ENOUGH TO ASK FOR FOOD IT WOULD BE GIVEN TO HIM. REMINDED PT'S MOTHER TO THINK ABOUT PT'S QUALITY OF LIFE AND WHAT HIS WISHES WOULD BE. SHE STATED THAT SHE DID NOT THINK HE WOULD WANT TO LIVE WITH RESTRAINTS AND SEDATING MEDICATION AND TUBE FEEDINGS BUT SHE STATED THAT SHE WANTS TO PURSUE PT'S ISSUES AND SEE IF ANYTHING CAN BE DONE TO HELP HIM. MRI FORM COMPLETED AND FAXED. ASKED DR BOYD IF HE WANTED GI CONSULT AND HE STATED HE WOULD DISCUSS WITH DR BRUCE. PT REMAINS IN RESTRAINTS AT THIS TIME. MEDICATED WITH PRN ATIVAN X2
--- NOTE | 2021-09-08 22:59 | NUR ---
ASSUMED CARE AT 1900 PATIENT IS ALERT AND ORIENTED TO SELF ONLY. FOLLOWS SOME SIMPLE COMMANDS AT TIMES. MEDICATED PER EMAR FOR AGITATION WITH BEDTIME DOES OF ATIVAN, PATIENT REMAINED VERY AGITATED PULLING AT RESTRAINTS, YELLING AND TRYING TO GET OUT OF BED. MEDICATED AGAIN WITH PRN ATIVAN. 02 SATS >95% ON RA. HR SR @90s. BP STABLE. YAP DRAINING. TF AT GOAL RATE. SEE SHIFT ASSESSMENT FOR MORE DETAIL.
[2021-09-09 03:51] LABS: Hematocrit 25.3 % (37.0-53.0); Hemoglobin 7.7 g/dL (13.5-17.5)
--- NOTE | 2021-09-09 06:04 | NUR ---
SHIFT SUMMARY PATIENT IS ALERT AND ORIENTED X SELF. AGITATED AND YELLING OUT MOST THE NIGHT, PULLING AT RESTRAINTS SAYING HE IS "GOING HOME". MEDICATED FOR AGITATION PER EMAR. 02 SATS >95% ON RA. HR SR @80s, BP STABLE. YAP DRAINING. 2 LARGE BOWEL MOVEMENTS THIS SHIFT BLACK/DARK BROWN, SOFT. REPOSITIONED AND BOOSTED IN BED NEEDED, PATIENT MOVED HIMSELF CONSTANTLY THROUGH THE NIGHT. ORAL CARE ATTEMPTED BUT PATIENT CLAMPS DOWN AND IS UNCOOPERATIVE.
--- NOTE | 2021-09-09 09:58 | NUR ---
AM NOTE... ASSUMED CARE OF PT AT 0700 THE PT WAKES TO VERBAL STIMULI BUT BECOMES AGITATED, THRASHING ON THE BED, THE PT IS IN A CHAVEZ AND SOFT WRIST RESTRAINTS TO PROTECT LINES AND THE DOBHOFF. THE PT'S VS STABLE AT THIS TIME. THE PT IS IN SR IN THE 70'S-90'S. NO EDEMA NOTED ON ASSESSMENT. THE PT IS ON RA WITH O2 SATS >95% L/S CLEAR T/O DIM IN THE BASES. BT PRESENT AND HYPOACTIVE, ABD SOFT AND PT DOSE NOT RESPOND IN A PAINFUL WAY DURING PALPATION. DOBHOFF TUBE FEEDINGS RUNNING PER ORDER. THE PT IS INCONT OF BOWEL, ATTENDS IN PLACE AND C/D/I. THE PT'S YAP IS PATENT AND DRAINING TO GRAVITY. PLAN IS TO ATTEMPT AN MRI TODAY. WILL CONTINUE TO MONITOR.
--- NOTE | 2021-09-09 17:05 | NUR ---
SHIFT SUMMARY.... NO ACUTE NEGATIVE CHANGES NOTED THIS SHIFT. THE PT'S VS HAVE BEEN STABLE, PT HAS BEEN AFEBRILE. THE PT HAS SLEPT WELL MOST OF THIS AFTERNOON. THE PT HAS NOT HAD A BM THIS SHIFT. PT HAS BEEN COOPERATIVE WITH ORAL CARE. THE PT CONTINUES TO BE ON RA WITH O2 SATS >95%. THE PT'S MOM WAS CALLED AND UPDATED BY PALLIATIVE CARE NURSE AND THE PROVIDER TODAY. THE PT IS TO TRANSFER TO THE MEDICAL FLOOR, REPORT GIVEN TO MEDICAL FLOOR RN. ALL OF PT'S BELONGINGS PACKED AND WILL BE SENT WITH THE PT.
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
[2021-09-10 05:16] LABS: Hematocrit 26.9 % (37.0-53.0); Hemoglobin 8.3 g/dL (13.5-17.5)
--- NOTE | 2021-09-10 06:01 | NUR ---
PM SHIFT SUMMARY PATIENT'S MOTHER IS HIS POA AND DOES NOT WANT COMFORT CARE AT THIS TIME. PLAN IS FOR PALLIATIVE CARE. HE IS CURRENTLY DNR. HE SLEPT MOST OF THE EVENING, BUT WHEN AWAKE, HE SPEAKS INCOMPREHENSIBLE WORDS AND MUMBLES. WHEN ASKED IF HE WAS FEELING ANY PAIN, HE SHOOK HIS HEAD NO. HE IS STILL IN SOFT WRIST RESTRAINTS AND A CHAVEZ AT THIS TIME. HE IS A&O TO SELF.
--- NOTE | 2021-09-10 14:29 | NUR ---
Patient was alert and orient to self. He was in good spirits and had no aggressive behaviors. His restraints were renewed today because of his unpredictable behavior. Patient took his NG tube out yesterday. However, this RN seeked out the provider for a speech eval order. Patient is now on mechanical soft diet w thin liquids. He took his meds crushed in applesauce. He had no complaints of pain. His caregiver, Jocy, visited and did speak to the provider. Patient was given a bed bath and checked and changed timely
[2021-09-11 05:31] LABS: Hematocrit 26.1 % (37.0-53.0); Hemoglobin 8.2 g/dL (13.5-17.5); Mean Corpuscular HGB 27.8 pg (26.0-34.0); Mean Corpuscular HGB Conc 31.4 g/dL (31.5-36.5); Mean Corpuscular Volume 89 fL (80-100); Mean Platelet Volume 9.4 fL (9.1-12.4); Platelet Count 726 K/mm3 (150-400); RDW Coefficient Variation 17.7 % (11.7-14.2); RDW Standard Deviation 57.2 fL (35.1-46.3); Red Blood Cell Count 2.95 M/mm3 (4.30-5.90); White Blood Cell Count 15.01 K/mm3 (4.00-11.30)
[2021-09-11 05:51] LABS: Bun/Creatinine Ratio 19.2 (12.0-20.0); Calcium, Blood 8.7 mg/dL (8.5-10.1); Creatinine, Blood 1.25 mg/dL (0.60-1.20); Potassium, Blood 4.1 mmol/L (3.5-5.5)
--- NOTE | 2021-09-11 06:31 | NUR ---
PM SHIFT SUMMARY PATIENT WAS VERY RESTLESS DURING THE SHIFT COMPARED TO THE PREVIOUS EVENING. HE CONTINUOUSLY BROKE OUT OF HIS RIGHT WRIST RESTRAINT AT LEAST 15+ TIMES DURING THE SHIFT. HE ONLY HAD ATIVAN ON BOARD TO GIVE PRN AND I DID NTO WANT TO KEEP GIVING IT TO HIM. HE DEFINTELY NEEDS SOMETHING ELSE MADE AVAILABLE TO GET HIM SOME SLEEP. YAP CATHETER DRAINING NORMALLY. HE WAS ABLE TO TAKE ALL HIS MEDS AND ENJOYED A FEW SIPS OF WATER DURING SHIFT. HIS SPEECH IS STILL INCOMPREHENSIBLE.
[2021-09-11 14:25] LABS: Source, Urine Foley catheter
[2021-09-11 14:35] LABS: Appearance, Urine Clear (Clear); Bilirubin, Urine Neg (Neg); Blood, Urine 1+ (Neg); Color, Urine Yellow (P-Yellow); Glucose Qualitative, Urine Neg (Neg); Ketones, Urine Neg (Neg); Leukocyte Esterase, Urine 2+ (Neg); Nitrite, Urine Neg (Neg); Protein, Urine 1+ (Neg); Specific Gravity, Urine 1.025 (1.003-1.022); Urobilinogen, Urine NORM (Normal)
[2021-09-11 14:57] LABS: Bacteria Mod /hpf; Squamous Epithelial Cells Rare /hpf (Few)
[2021-09-11 14:58] LABS: Calcium Oxalate Crystals Few /hpf; Uric Acid Crystals Rare /hpf
--- NOTE | 2021-09-11 15:57 | NUR ---
Patient was alert and orient, he spent time either sitting up in bed or sleeping. He was not able to follow some commands when asked however he was not aggressive in any way. His order for soft restraints were renewed this morning for unpredictable behavior of attemtping to jump out of the bed and pull on IV and Stephens. Patient was in good spirits, and was compliant with taking his medications. Continue to monitor for safety
--- NOTE | 2021-09-12 05:10 | NUR ---
PM SHIFT SUMMARY PATIENT WAS VERY CALM FOR THE MAJORITY OF THIS SHIFT. HE FELL ASLEEP AROUND 12:30AM AND ONLY AWOKE BRIEFLY FOR VITAL SIGNS. I REMOVED HIS WRIST RESTRAINTS TO GIVE HIM SOME RELIEF AT 1:00AM AND HE HAS YET TO ATTEMPT TO GET OUT OF BED. PER REPORT FROM AM NURSE, HIS CAREGIVER DOES NOT WANT HIM TO BE DNR. IF NEEDED, HIS RESTRAINTS ARE TO BE RENEWED AT 8:20AM.
[2021-09-12 05:47] LABS: BASOPHILS ABSOLUTE AUTO 0.04 K/mm3 (0.00-0.23); BASOPHILS PERCENT AUTO 1 % (0-2); EOSINOPHILS ABSOLUTE AUTO 0.23 K/mm3 (0.00-0.68); EOSINOPHILS PERCENT AUTO 3 % (0-6); Hematocrit 26.7 % (37.0-53.0); Hemoglobin 8.1 g/dL (13.5-17.5); IMMATURE GRAN ABSOLUTE AUTO 0.06 K/mm3 (0.00-0.10); IMMATURE GRAN PERCENT AUTO 1 % (0-1); LYMPHOCYTES ABSOLUTE AUTO 2.05 K/mm3 (0.84-5.20); LYMPHOCYTES PERCENT AUTO 25 % (21-46); MONOCYTES PERCENT AUTO 7 % (4-13); Mean Corpuscular HGB 27.3 pg (26.0-34.0); Mean Corpuscular HGB Conc 30.3 g/dL (31.5-36.5); Mean Corpuscular Volume 90 fL (80-100); Mean Platelet Volume 9.7 fL (9.1-12.4); NEUTROPHILS ABSOLUTE AUTO 5.28 K/mm3 (1.96-9.15); NEUTROPHILS PERCENT AUTO 64 % (41-73); Platelet Count 717 K/mm3 (150-400); RDW Coefficient Variation 17.9 % (11.7-14.2); RDW Standard Deviation 58.7 fL (35.1-46.3); Red Blood Cell Count 2.97 M/mm3 (4.30-5.90); White Blood Cell Count 8.26 K/mm3 (4.00-11.30)
[2021-09-12 06:20] LABS: Anion Gap 6 mmol/L (6-16); Blood Urea Nitrogen 15 mg/dL (8-24); Bun/Creatinine Ratio 16.6 (12.0-20.0); CO2, Blood 26 mmol/L (21-32); Calcium, Blood 8.8 mg/dL (8.5-10.1); Chloride, Blood 111 mmol/L (98-108); Creatinine, Blood 0.91 mg/dL (0.60-1.20); Glomerular Filtration Rate >60 (60-); Glucose, Blood 96 mg/dL (70-99); Sodium, Blood 143 mmol/L (136-145)
--- NOTE | 2021-09-12 11:39 | NUR ---
PATIENT REMAINS IN CHAVEZ VEST. NOTED TO BE THROWING LEGS OVER SIDE OF BED. HE IS NOT ORIENTED TO PERSON PLACE TIME OR SITUATION AT THIS TIME. HE DOES FOLLOW COMMANDS. PUPILS ARE SLUGGISH. LUNGS ARE CLEAR BUT DIMINISHED. BOWEL TONES ARE PRESENT. NO EDEMA OR REDNESS TO EXTREMITIES. WILL CONTINUE TO MONITOR THIS PATIENT CLOSELY.
--- NOTE | 2021-09-12 17:54 | NUR ---
SHIFT SUMMARY; PATIENT REMAINS CONFUSED DURING DAY. VEST AND BILATERAL SOFT RESTRAINTS TO UPPER EXTREMITIES ARE IN PLACE. HE IS PULLING AT LINES AND HAS UNPREDICTABLE BEHAVIOR INCLUDING STRIKING OUT AT STAFF AND TRYING TO ROLL OVER RAILING ON SIDES OF BED. HE HAS LARGE LIQUID BLACK STOOL THAT WAS SENT TO LAB FOR DIAGNOSTIC GUAIC THAT WAS POSITIVE FOR BLOOD. HE IS RECEIVING NS AT 75ML/HR HE IS NOW NPO SINCE HE IS HAVING INCREASED DIFFICULTY IN SWALLOWING AND HOLDS FOOD IN HIS MOUTH AND DOES NOT SWALLOW. HE IS UNABLE TO DRINK FROM A CUP OR USE A STRAW. JUST BITES STRAW AND CHOKES ON LIQUID IN HIS MOUTH. SPEECH EVAL IS ORDERED. WILL REMAIN AVAILABLE FOR THIS PATIENT FOR ANY WANTS OR NEEDS UNTIL REPORT AND HAND OFF AT SHIFT CHANGE TO NOC SHIFT RN.
[2021-09-12 21:10] LABS: Hematocrit 26.2 % (37.0-53.0); Hemoglobin 8.2 g/dL (13.5-17.5)
--- NOTE | 2021-09-13 05:59 | NUR ---
SHIFT SUMMARY ALERT TO SELF. CONFUSED. FOLLOWS SOME COMMANDS. AGITATED. PULLING AT LINES. DISROBING. DIFFICULT TO RE-DIRECT. REMAINS NPO; AWAITING SPEECH EVAL. YAP SECURED AND DRAINING TO GRAVITY. APPEARED TO REST MUCH OF THE NIGHT AFTER ANXIOLYTIC GIVEN. NEW IV PLACED TO RFA. FLUIDS INFUSING WITHOUT COMPLICATIONS. BED REAMINED IN LOWEST POSITION; ALARM ON. RESTRAINTS FOR SAFETY. REPORT TO ONCOMING RN.
[2021-09-13 07:19] LABS: Stool Occult Blood Guaiac 1 Pos (Neg)
[2021-09-13 08:44] LABS: Hematocrit 26.7 % (37.0-53.0); Hemoglobin 8.1 g/dL (13.5-17.5)
--- NOTE | 2021-09-13 19:07 | NUR ---
SHIFT SUMMARY; PATIENT PULLED YAP CATHETER OUT DURING EARLY AFTERNOON. REPLACED PER BENJA HAD NOT HAD ANY OUTPUT. BLADDER SCAN SHOWED 14MNL IN BLADDER. ORDER RECEIVED FOR 200 BOLUS LR THEN 150ML/HR FOR ONE BAG. PATIENT AGAIN PULLED CATHETER OUT. SCANT AMOUNT OF BLEEDING NOTED IN BAG. REPLACED CATHETER AND PATIENT REMAINS IN SOFT RESTRAINTS X [address]. HE IS IMPULSIVE AND NOTED TO TRY AND ROLL OVER RAILS OF BED AND IS IN DANGER OF FALLING TO FLOOR. HE PULLS AT LINES AND TUBING ALONG WITH CATHETER. DECISION TO KEEP RESTRAINTS IN PLACE DURING DAY. PATIENT REMAINS IN NPO STATUS. MINIMAL OUTPUYT NOTED PRIOR TO LR INFUSION. NOW APPROX 200ML NOTED 3 HOURS AFTER LR START. VITAL SIGNS ARE WITHIN NORMAL LIMITS. BENJA IS ORIENTED TO SELF AND UNABLE TO FOLLOW COMMANDS. HE IS INCONTINENT OF BOWEL. DARK TARRY STOOLS ARE NOTED. WILL PASS ON IN REPORT TO NOC SHIFT RN.
[2021-09-14 04:43] LABS: Hematocrit 26.9 % (37.0-53.0); Hemoglobin 8.2 g/dL (13.5-17.5); Mean Corpuscular HGB 27.1 pg (26.0-34.0); Mean Corpuscular HGB Conc 30.5 g/dL (31.5-36.5); Mean Corpuscular Volume 89 fL (80-100); Mean Platelet Volume 9.1 fL (9.1-12.4); Platelet Count 595 K/mm3 (150-400); RDW Coefficient Variation 17.5 % (11.7-14.2); RDW Standard Deviation 56.7 fL (35.1-46.3); Red Blood Cell Count 3.03 M/mm3 (4.30-5.90); White Blood Cell Count 8.08 K/mm3 (4.00-11.30)
[2021-09-14 05:03] LABS: Anion Gap 7 mmol/L (6-16); Blood Urea Nitrogen 8 mg/dL (8-24); Bun/Creatinine Ratio 10.8 (12.0-20.0); CO2, Blood 25 mmol/L (21-32); Calcium, Blood 8.4 mg/dL (8.5-10.1); Chloride, Blood 110 mmol/L (98-108); Creatinine, Blood 0.74 mg/dL (0.60-1.20); Glomerular Filtration Rate >60 (60-); Glucose, Blood 92 mg/dL (70-99); Magnesium, Blood 2.1 mg/dL (1.6-2.4); Potassium, Blood 3.7 mmol/L (3.5-5.5); Sodium, Blood 142 mmol/L (136-145)
--- NOTE | 2021-09-14 07:20 | NUR ---
SHIFT SUMMARY PATIENT WAS VERY COMBATIVE AND AGITATED TRYING TO GET OUT THE BED SEVERAL TIMES REDIRECTED CONT RESTRAINS MONITOR AND CARE Q 2HRS.ATIVAN ADM PER ORDER.
--- NOTE | 2021-09-14 18:27 | NUR ---
PATIENT ON RESTRAINTS UPON ARRIVALON ON ROOM AIR. PATIENT AWAKE BUT DROWSY AND TRYING TO GET OUT OF RESTRAINTS. PATIENT PULLING AT IV AND CATHETER. RESTRAINTS CHARTED EVERY 2 HOURS DURING SHIFT. PATIENT DID GET OUT OF RESTRIANTS X4 BUT WAS REDIRECTED AND RESTRAINTS WERE PLACED BACK ON. PATIENTS BOTTOM A LITTLE RED, MEPILEX APPLIED. NO NEW CONCERNS. WILL REPORT TO RN UPON ARRIVAL.
[2021-09-15 04:46] LABS: BASOPHILS ABSOLUTE AUTO 0.03 K/mm3 (0.00-0.23); BASOPHILS PERCENT AUTO 0 % (0-2); EOSINOPHILS PERCENT AUTO 3 % (0-6); Hematocrit 27.1 % (37.0-53.0); Hemoglobin 8.3 g/dL (13.5-17.5); IMMATURE GRAN ABSOLUTE AUTO 0.03 K/mm3 (0.00-0.10); IMMATURE GRAN PERCENT AUTO 0 % (0-1); LYMPHOCYTES PERCENT AUTO 23 % (21-46); MONOCYTES ABSOLUTE AUTO 0.53 K/mm3 (0.16-1.47); MONOCYTES PERCENT AUTO 8 % (4-13); Mean Corpuscular HGB Conc 30.6 g/dL (31.5-36.5); Mean Corpuscular Volume 88 fL (80-100); NEUTROPHILS ABSOLUTE AUTO 4.59 K/mm3 (1.96-9.15); NEUTROPHILS PERCENT AUTO 66 % (41-73); Platelet Count 575 K/mm3 (150-400); RDW Coefficient Variation 17.3 % (11.7-14.2); RDW Standard Deviation 55.4 fL (35.1-46.3); Red Blood Cell Count 3.07 M/mm3 (4.30-5.90); White Blood Cell Count 6.98 K/mm3 (4.00-11.30)
--- NOTE | 2021-09-15 05:26 | NUR ---
SHIFT SUMMARY INCREASED AGITATION AND RESTLESS TRYING TO TAKE OFF THE RESTRAINS SEVERAL TIME REDIRECTED WITH POOR RESULT NEW ORDERS TO CONTINUE WITH RESTRAINS RECEIVED FROM DR IGNACIO.FLUIDS SNACKS OFFERED DURING CARE CONT IV FLUIDS ORDERED FOLLEY CATH DRAINING WELL DEBBIE URINE.
--- NOTE | 2021-09-15 12:27 | NUR ---
RN RECEIVED REPORT FROM OUTGOING RN. PATIENT APPEARED TO BE SLIGHTLY AGGITATED BUT ON RESTRAINTS AND SLOWING DOWN DURING REPORT. RN REPORTED PRN GIVEN SLIGHTLY BEFORE REPORTING TIME AT 8AM. VITALS WERE STABLE ON PATIENT. PATIENT APPEARED ASLEEP DURING ROUNDS. DURING BREAKFAST SENIOR SHAREPOINT DEVELOPER UNABLE TO FEED PATIENT DUE TO LEVEL OF CONCIOUSNESS. PATIENT UNABLE TO FOLLOW DIRECTIONS ON CHEWING OR SWALLOWING FOOD. PATIENT NOT ABLE TO COMMUNICATE VERBALLY EVEN WITH YES OR NO ANSWERS WITH STAFF. MEDICATIONS HELD AND FOOD WITHHELD. CONTINUOUS FLUIDS STILL RUNNING. PATIENT'S STATUS REPORTED TO CHARGE AND MD. LUNCH ALSO HELD DUE TO PATIENT'S CURRENT LEVEL OF CONCIOUSNESS UNSAFE TO EAT.
--- NOTE | 2021-09-15 18:22 | NUR ---
PATIENT WOKE UP AROUND 5:20PM. RN ABLE TO OBSERVE PT'S EYES OPEN FOR THE FIRST TIME SINCE ARRIVAL. PATIENT EXPRESSED THAT HE WAS THIRSTY. ENSURE PLUS X2 GIVEN TO PT AND A CARTON OF MILK. FOOD OFFERED TO PATIENT BUT PATIENT DECLINED. PATIENT ALERT AND ORIENTED TO SELF UNABLE TO HAVE A CONVERSATION BUT IS ABLE TO ANSWER YES OR NO QUESTIONS IF GIVEN TIME.
--- NOTE | 2021-09-16 05:02 | NUR ---
SHIFT SUMMARY PATIENT REMAIN CONFUSED RESTLESS NOW AND THEN STAYED UP WHOLE NIGHT REDIRECTED SEVERAL TIMES TRYING TO PULL RESTRAINS OUT AND GETTING OUT OF THE BED CONT Q2 HRS CHECKS RESTRAINS RELEIS AND SKIN ASSESSMENT ASSISTED WITH FEEDING PUDDING AND FLUIDS OFFERED DURING ROUTINE CHECKS NO ACUTE CHANGE NOTED CONT IV FLUIDS AT 75ML/HR YAP CATH DRANING DEBBIE URINE 800CC.
--- NOTE | 2021-09-16 18:33 | NUR ---
PT STILL VERY RESTLESS AND GETTING AGITATED, TRYING TO PULL OUT LINES AND YAP. PT REPOSITIONED AND FED AND STILL TRYING TO CLIMB OUT OF BED. PATIENT MEDICATED PER EMR. PATIENT NOW RESTING COMFORTABLY. CALL LIGHT PLACED WITHIN REACH. BED IN LOWEST POSITION. RESTRAINTS CHECKED AND CHARTED. NO SKIN BREAKDOWN FROM RESTRAINTS NOTED.
--- NOTE | 2021-09-17 05:10 | NUR ---
SHIFT SUMMARY PATIENT RESTLESS TRYING TO PULL THE RESTRAINS ATTEMPT TO PULL YAP CATHETER OUT REDIRECTED NON-PHAMACOLOGICAL INTERVATION BY FEEDING HIM WITH PUDDING, FLUIDS, ROOM TEMP TO PT COMFORT SKIN ASSESSMENT WITH RELIEASE OF RESTRAINS Q 2 HRS SKIN INTACT SOME REDNESS TO AIDE ELBOW DUE TO PT PULLING HIMSELF UP AND DOWN.YAP DRAINING WELL DEBBIE URINE PT WAS UP THE WHOLE NIGHT NO ACUTE CHANGE NOTED.
[2021-09-17 10:16] LABS: Anion Gap 3 mmol/L (6-16); Blood Urea Nitrogen 6 mg/dL (8-24); CO2, Blood 29 mmol/L (21-32); Calcium, Blood 8.3 mg/dL (8.5-10.1); Chloride, Blood 111 mmol/L (98-108); Creatinine, Blood 0.67 mg/dL (0.60-1.20); Glomerular Filtration Rate >60 (60-); Glucose, Blood 104 mg/dL (70-99); Sodium, Blood 143 mmol/L (136-145)
--- NOTE | 2021-09-17 16:53 | NUR ---
review of pt medications with physician and risks of side effects will talk with staff and charge about getting him to chair more often.
--- NOTE | 2021-09-17 17:36 | NUR ---
PT HAS BEEN VERY RESTLESS ALL DAY. PT WAS SWEARING, SCREAMING/MOANING OUT, AND SHAKING THE SIDE RAILS. PT WAS MEDICATED PER EMR. PT IS STILL RESTLESS. UNABLE TO REDIRECT AT TIMES. PT WAS REPOSITIONED AND RESTRAINTS WERE CHECKED Q2, NO SKIN BREAKDOWN NOTED. BED IN LOWEST POSITION AND BED ALARM ON.
--- NOTE | 2021-09-18 05:05 | NUR ---
SHIFT SUMMARY PATIENT ALERT TO SELF CALM SLEEPT WELL TODAY AWAKE DURING REALISING AND ASSESSMENT OF RESTRAIN WATER OFFERED AND WENT BACK TO SLEEP NO BEHAVIOURS IN THIS SHIFT.SAFETY IN PLACE WILL CONT TO MONITOR
--- NOTE | 2021-09-18 16:59 | NUR ---
theraputic time with pt. fed him some pudding and a beverage. Can give yes not to some questions. He yells out, He answers yes to pain to his Iv arm. has some rapid sequence speech patterns. May need psyc to see him again for medications. pt has has a lot of truma in his life and sever alcoholism. Medications may be difficult suggest up to chair. Suggest back on comfort care and remove IV and sainz. Will suggest team meeting.
--- NOTE | 2021-09-18 18:46 | NUR ---
PT ALERT TO SELF. STILL RESTLESS AND TRYING TO PULL AT LINES. PT OCCASIONALY YELLS OUT WHEN TRYING TO GET OUT OF RESTRAINTS. PT APPITITE'S BETTER THAN YESTERDAY. RESTRAINTS CHECKED Q2/NO SKIN BREAKDOWN NOTED FROM RESTRAINTS. PT REPOSITIONED. PT NOW RESTING IN BED. BED IN LOWEST POSITION. CALL LIGHT WITHIN REACH.
--- NOTE | 2021-09-19 03:28 | NUR ---
SHIFT SUMMARY INCREASED AGITATION T/O THE SHIFT PULLING AT YAP AND BED RAILS. ON CAMERA. IV ATIVAN 1 MG GIVEN PER EMAR. AXO TO SELF. BEDREST. RESTRAINTS CONTINUED PER ORDER. TAKES MEDICATION CRUSHED IN APPLESAUCE. PIV REMAINS INTACT. NS INFUSING AT 75mL/HR. YAP PATENT AND DRAINING TO GRAVITY. VSS/AFEBRILE. DENIES PAIN, SOB, AND N/V. BED IN LOWEST POSITION. WILL CONTINUE TO MONITOR UNTIL DAY SHIFT NURSE ASSUMES CARE.
--- NOTE | 2021-09-19 18:16 | NUR ---
PT ASLEEP MOST OF SHIFT WITH OCASSIONAL YELLS AND TRYING TO GET OUT OF RESTRAINTS. PT MORE AWAKE BY DINNER TIME. PT REPOSITIONED AND CHECKED RESTRAINTS Q2. NO SKIN BREAK DOWN NOTED. CALL LIGHT PLACED WITHIN REACH AND BED IN LOWEST POSITION.
--- NOTE | 2021-09-20 03:11 | NUR ---
SHIFT SUMMARY PATIENT AGITATED FIRST PART OF SHIFT. 19:00 SCHEDULED TRAZADONE 100 MG HELD UNTIL 21:00 PER DAY RN ORDERS FROM PATIENT ABLE TO SLEEP FOR A FEW HOURS. RESTRAINTS ON PER ORDERS. INCREASED AGITATION AND IV ATIVAN 0.5 MG GIVEN PER EMAR. MINIMAL EFFECT. PATIENT PULLING AT YAP T/O SHIFT ON CAMERA. PIV REMAINS INTACT. NS INFUSING AT 75 mL/HR. YAP PATENT AND DRAINING TO GRAVITY. NO S/SX OF PAIN, SOB, AND N/V. BED IN LOWEST POSITION AND ALARM ACTIVATED. WILL CONTINUE TO MONITOR UNTIL DAY SHIFT NURSE ASSUMES CARE.
--- NOTE | 2021-09-20 17:11 | NUR ---
SHIFT SUMMARY PT MUBLES AND NONCOHERENT, DOES NOT FOLLOW DIRECTION. PT IS STILL ON RESTRAINTS DUE TO PULLING LINES, AGGRESSIVE AND IMPULSIVE. TALKED TO THIS AM AND UPDATED ABOUT THE PT SITUATION. PT ATE A LITTLE BIT AT LUNCH TIME. BED IS IN THE LOWEST POSITION AND CALL LIGHT WITHIN REACH.
--- NOTE | 2021-09-21 04:07 | NUR ---
SHIFT SUMMARY PATIENT HAD NO ACUTE CHANGES. ALERT TO SELF, MUMBLING AND NON-COHERENT. BEDREST. RESTRAINTS PER ORDERS. TAKES MEDICATION CRUSHED IN APPLESAUCE. PIV REMAINS INTACT. NS INFUSING AT 75 mL/HR. YAP PATENT AND DRAINING TO GRAVITY. ON CAMERA. VSS/AFEBRILE. HR ELEVATED WITH AGITATION. NO S/SX OF PAIN, SOB, AND N/V. BED IN LOWEST POSITION AND ALARM ACTIVATED. WILL CONTINUE TO MONITOR UNTIL DAY SHIFT NURSE ASSUMES CARE.
[2021-09-21 05:57] LABS: Valproic Acid 54.7 ug/mL (50.0-100.0)
--- NOTE | 2021-09-21 10:45 | NUR ---
PATIENT WAS A AND O TO SELF. PATIENT HAS UNPREDICATIBLE BOUGHTS OF AGGITATION AND TRYS TO PULL YAP OUT. PATIENT ABLE TO FOLLOW SIMPLE COMMAANDS AND TAKE PILLS CRUSHED AND APPLE SAUCE.
--- NOTE | 2021-09-21 17:57 | NUR ---
Pt sedate this morning with deep equal respirations. He remains aggitated at time and restless. Ethic consult placed for plan of care. pt fast score is 7c pt tries to respond to conversation can sometimes respond with one to two words. Most time he has outbursts or repetative non-sensical expressions. spoke with physicians about his prognosis and difficulties with getting him off restraints. Review of symptoms with nursing needs some tylenol and pain mangement. called his caregiver about his prognosis and the benefits of placing him on comfort care. Goal is to reduce restraints and better aggitation and pain control. Caregiver helps pt mother with decision. She feels returning home on hospice is best plan. She would like me to call pt mother and explain his needs. Long converstaion with pt mother. She is very tearful that he is not improving. We discussed comfort care and hospice and reducing his suffering. She stated she needs to rely on his caregiver for decision. She cried really hard and reminissed about his life. Asked if she would like to speak to him.Went to room and called her. He was able to recognize her voice and tried to interact. However it was mostly incomprehensible. She was comforted by hearing his voice. But, also shocked and how demented he presented. MASOOD Alonzo was witness to interaction with pt mother she made decision to place him on comfort and hospice care. updated physician and home care consultant. Will follow up with mother and caregiver. goal is to remove oall noxious stimulus such as sainz and IV lines. Medicate for discomfort and hopefully up in recliner with dax.
--- NOTE | 2021-09-22 04:15 | NUR ---
SHIFT SUMMARY: PATIENT VERY DROWSY AT START OF SHIFT, UNABLE TO AROUSE ENOUGH TO TAKE PO MEDS SAFELY. PATIENT EVENTUALLY AWOKE SPONTANEOUSLY AND TOOK PO MEDS WITH LOTS OF QUEING. ONE EPISODE OF AIR HUNGER/PAIN TREATED PER EMAR. NO AGITATION EXHIBITED ON NOC SHIFT. WCTM.
--- NOTE | 2021-09-22 10:32 | NUR ---
PATIENT SLEEPING IN BED COMFORTABLY. PATIENT SELF ROTATES OCCASIONALLY IN BED. PATIENT WAS NOT ABLE TO TAKE PILLS THIS AM ONLY DURING THE NIGHT CRUSHED. PATIENT ONLY RESPONSIVE TO HARD TOUCH/PAIN.
--- NOTE | 2021-09-22 15:12 | NUR ---
Received notification from [facility] baggage screener (Yrn Segovia) that patient is hospice appropriate and able to be accepted onto service post discharge. Will attempt to meet with patient and family today to further discuss the above. Will continue to monitor and follow for discharge. Elma Mann Referral Liaison
--- NOTE | 2021-09-22 17:51 | NUR ---
pt resting breathing deep and even no restraints . career resource specialist plan to get pt home on hospice.
--- NOTE | 2021-09-22 22:56 | NUR ---
SHIFT SUMMARY: PATIENT ON COMFORT CARE. DYSPNEA, PAIN, AND AGITATION TREATED PER EMAR. PATIENT MORE RESTLESS TONIGHT, TOSSING IN BED, LOUD GRUNTING, TENSE FISTS, TURNED SELF UPSIDE DOWN, THROWING LEGS OVER THE RAIL, SITTING UP ABRUBTLY AND THROWING BODY AGAIST RAIL, NONSENSICAL SPEECH. WCTM.
--- NOTE | 2021-09-23 10:19 | NUR ---
PATIENT TURNS SELF OCCASIONALLY. PATIENT HAS OPPENDED EYES OCCASIONALLY. PATIENT HAS NOT HAD ANYTHING BY MOUTH TODAY. PAITENT HAS NEEDED MORPHINE MORE FREQUENTLY TODAY THAN YESTERDAY. PATIENT ONLY RESPONSIVE TO PAIN.
--- NOTE | 2021-09-23 16:23 | NUR ---
Comfort Care Visit Pt resting in bed with his eyes closed. Pt appears comfortable with no S/S of distress at this time. Pt left undisturbed at this time. Spoke with Primary RN Andres and discussed case. No concerns reported at this time. Spoke with Caremanbeverly Ramirez and discussed case. Caregiver waxing and wayning on home with hospice vs facility with hospice. Plan for Caregiver to meet with Suze &H Daquan Wills tomorrow. Palliative Care will remain available.
--- NOTE | 2021-09-24 04:20 | NUR ---
SHIFT SUMMARY: PATIENT ON COMFORT CARE, MORE RESTLESS BUT LESS REPSONIVE/COMMUNITATIVE TONIGHT-THRASHING IN BED, THROWING LIMBS OVER RAILS, THRUSTING HIPS INTO AIR REPEATDLY, TENSE AND RIGID EXTREMETIES, FACIAL FRIMACE, MOANING. TREATED PER EMAR.
--- NOTE | 2021-09-24 07:39 | NUR ---
ASSUMED CARE: PT RESTING QUIETLY AT THIS TIME. BED ALARM ON. NIGHT RN REPORTS PT HAS A TENDENCY TO MOVE FREQUENTLY IN BED. NO ACUTE NEEDS AT THIS TIME.
--- NOTE | 2021-09-24 10:14 | NUR ---
DR FAUST CAME TO SEE PT AND WAS MADE AWARE THAT PT WAS RESTLESS FOR BEHAVIOR THERAPIST. DR TO REVIEW PT'S ORDERS TO SEE WHAT HE CAN ADD FOR PM. DR AWARE THAT STAFF IS USING SIDERAILS APPROPRIATE FOR PT'S SAFETY. CLINICAL COORDINATOR EUNICE AWARE OF THIS WELL. SALIMA FROM HOME HOSPICE CAME TO MEET WITH PT'S TELETYPESETTER MONITOR BUT CAREGIVER NOT HERE AT THIS TIME. WILL CALL SALIMA WHEN TELETYPESETTER MONITOR ARRIVES.
--- NOTE | 2021-09-24 16:05 | NUR ---
Telephone call to patient's caregiver (Jocy Martin) today- 09/24/2021 at 1602 regarding hospice discharge meeting that was to happen today at 1000 (caregiver no showed appointment with this writer editor). Patient's caregiver states she got into town late last night and overslep our appointment this morning. She states again that she doesn't think she can manag patient at home as she "lost the caregiver I had before" and that she doesn't think she can "manage" the patient at home without the other caregiver. Jocy provided this writer editor with the number to Lindsay at [facility] ([phone]) as caregiver states that she wants him to go to a facility. Reminded caregiver of her previous conversation with nurse medicare biller (Cornelius Lackey) regarding patient currently being on a waiting list for [facility], but that there was no guarantee when patient would be able to discharge there if at all. Discussed with caregiver that an alternated discharge plan for home would likely need to be discussed and planned should patient be unable to be placed. Will continue to monitor and follow for discharge. Elma Mann Referral Liaison
--- NOTE | 2021-09-24 17:33 | NUR ---
SHIFT SUMMARY: PT RESTING QUIETLY BUT AGITATED AT TIMES. CAMERA MONITERING IN PLACE FOR SAFETY. REQUIRED ATIVAN X2 AND ROXINOL X1. HAS BEEN WITH EYES CLOSED, NOT TALKING TO STAFF MOST OF THE DAY AND WHEN HE DOES TALK IT IS A FEW WORDS OR NONSENSICAL. NO ACUTE NEEDS AT THIS TIME.
--- NOTE | 2021-09-24 17:39 | NUR ---
Pt slightly restless, looks more frail. plan is to discharge on hospice. will continue to monitor. Pt caregiver showing signs of fatigue missed meeting.
--- NOTE | 2021-09-25 08:15 | NUR ---
SHIFT SUMMARY PT CONFUSED BUT DID ANSWER"YEAH " ONCE TO QUESTION IF WAS IN PAIN.PT APPEARED TO HAVE NO AIR HUNGER AND DR. HILL WAS MADE AWARE OF PAIN AND NEW ORDER RECEIVED. PT WAS ALSO MEDICATED ONCE FOR AGITATION THIS SHIFT PER SEP. ORAL CARE WAS DONE AND PT WAS REPOSITION AND BRIEF CHANGED Q 2 HRS PRN. NO ACUTE DISTRESS NOTED.
--- NOTE | 2021-09-25 13:30 | NUR ---
Review with nursing pt symptoms pt has back pain and starts getting fussy and truning in bed. He struggles with comprehension and history of long ETOH use. Review with physician randal got po for comfort in case he looses iv. pt recieving im injections with not recieve that route on hospice. Will monitor for changes may need higher dose narcotic.
--- NOTE | 2021-09-26 00:33 | NUR ---
SHIELD RUNNER SUMMARY PATIENT HAD A FAIR SHIFT. HE WAS MOSTLY DROWSY AND ALSO RESTLESS AT THE BEGINNING OF THE SHIFT. HE GOT ATIVAN AND HIS PAIN MED, THIS HELPED TO CALM HIM DOWN. AND HE WAS ABLE TO BE MORE COMFORTABLE. NO OTHER COMPLAINT OVERNIGHT. WILL CONTINUE TO MONITOR HIM.
--- NOTE | 2021-09-26 10:37 | NUR ---
Pt resting in bed with his eyes closed. Pt continuously squirming and repositioning himself. Pt just recently received Roxanol. Spoke with Primary RN Gladys and discussed case. Reviewed comfort medications. Gladys will offer Ativan for comfort. Palliative Care will remain available.
--- NOTE | 2021-09-26 21:29 | NUR ---
RESTING. CALL LIGHT IN REACH
--- NOTE | 2021-09-26 21:30 | NUR ---
CLEANED AND REPOSITIONED FOR COMFORT - WAS INCONT. CALL LIGHT IN REACH. WARM BLANKETS APPLIED
--- NOTE | 2021-09-26 22:56 | NUR ---
RESTING QUIETLY. CALL LIGHT IN REACH
--- NOTE | 2021-09-26 23:57 | NUR ---
RESTING QUIETLY. CALL LIGHT IN REACH
--- NOTE | 2021-09-27 05:08 | NUR ---
REPOSITIONED INTERMITTENTLY. ALSO MOVES SELF. SEE MAR FOR DETAILS RE MEDS
--- NOTE | 2021-09-27 05:10 | NUR ---
COMMISSIONS COORDINATOR SUMMARY REMAINS ON COMFORT CARE. PAIN MEDS ADMINISTERED WHEN NOTICED S/S APPARENT PAIN/DISCOMFORT. SEE MAR FOR DETAIS. CHANGED FOR INCONTINENCE AND ASSISTED WITH REPOSITIONING NEEDED. CALL LIGHT IN REACH
--- NOTE | 2021-09-27 13:35 | NUR ---
Comfort Care Pt resting in bed with his eyes closed. Pt continuously moving in bed. Reviewed emar, Pt just recently received comfort medications. Will continue to monitor. Primary RN not available at this time. Palliative Care will remain available.
--- NOTE | 2021-09-27 19:27 | NUR ---
RESTING QUIETLY. NO S/S ACUTE DISTRESS. NO S/S DISCOMFORT. CALL LIGHT IN REACH. RAILS UP X 3
--- NOTE | 2021-09-28 04:59 | NUR ---
BOMB SQUAD OFFICER SUMMARY REMAINS ON COMFORT CARE. ABLE TO REPOSITION SELF, ON CAMERA, NOTED PT MAKING A FEW ATTEMPTS TO CLIMB OUT OF BED. WAS FOUND TO BE INCONT, CHANGED EACH TIME AND RECEIVED PAIN MEDS FOR COMFORT. SEE MAR FOR DETAILS. CALL LIGHT IN REACH. RAILS UP X 3. CURRENTLY RESTING QUIETLY WITHOUT NOTED DISCOMFORT/ACUTE DISTRESS.
--- NOTE | 2021-09-28 16:08 | NUR ---
SHIFT SUMMARY PT RESTING QUIETLY AT START OF SHIFT. ON COMFORT CARE, PER REPORT. PT VERY BUSY AND RESTLESS WHEN NOT ASLEEP. PULLING ATTENDS OFF. PT REPOSITIONED MULTIPLE TIMES. ASSISTED UP IN BED AGAIN BEFORE BREAKFAST. PT ABLE TO EAT A FEW BITES FOR BREAKFAST WITH ASSISTANCE. PT CLEANED AND CHANGED. GOWN AND PANTS PUT ON BACKWARDS TO KEEP CLOTHES ON. PT BECOMING VERY AGITATED AND RESTLESS; MEDICATED PER EMAR FOR ANXIETY AND HX OF CHRONIC PAIN. PT RESTED WELL FOR SEVERAL HOURS. PT THEN BECOMING AGITATED AND RESTLESS AGAIN. CLEANED AND CHANGED FOR INCONTINENCE. MEDICATED FOR PAIN/GROANING. BED ALARM ON FOR SAFETY. PT ALSO ON CAMERA FOR SAFETY. ORAL CARE COMPLETE PT ALLOWS; X2 TO PRESENT THIS SHIFT.
--- NOTE | 2021-09-28 18:00 | NUR ---
Pt becoming more thin and frail. will review medications and adjust over the next few days . He may not need as frequnt a dose. He still has some stiffening and grabbing may consider dose adjustment or adjunct.
[2021-09-29 12:22] LABS: Influenza A, PCR NEGATIVE (NEGATIVE); Influenza B, PCR NEGATIVE (NEGATIVE); Resp Syncytial Virus, PCR NEGATIVE (NEGATIVE); SARS-Cov-2 (COVID-19) PCR, MMC NEGATIVE (NEGATIVE)
--- NOTE | 2021-09-29 16:34 | NUR ---
1510 PT D/C'D TO [facility] ON HOSPICE. FAMILY TO , PRIOR TO TRANSPORT ARRIVAL, TO TALK WITH APPLICATIONS ADMINISTRATOR AND DISCUSS PLAN OF CARE. PT MEDICATED PER EMAR FOR ANXIETY AND MOANING; HX OF CHRONIC PAIN. PT NOT EATING AT ALL TODAY. ATIVAN ADMINISTERED IN A BITE OF APPLESAUCE, BUT PT UNWILLING TO EAT OR DRINK. PT DID NOT OPEN EYES TO ANY STIMULUS. SLIDE TX TO SIMON. BELONGINGS SENT HOME WITH FAMILY.
--- NOTE | 2021-09-29 17:48 | NUR ---
review of plan with staff. pt medicated to tolerate trasportation. supportiv visit with his cargiver.
--- NOTE | 2021-09-30 12:49 | NUR ---
Review of patient's records today indicate that patient discharged to hospice house outside of [facility]'s service area. Notified [facility] Intake ROLL WINDER (Poppy Rider) of the above. No further interventions required. Elma Mann Referral Liaison
== END 2021-09-29 15:13 | disposition hospice, home (50) | DRG 56 ==
LOC: ER 12:48 → EOR 12:49 → ER 12:49 → MEDS 08-23 12:32 → ICUE 09-01 13:54 → ICUW 09-03 19:09 → MEDS 09-09 17:23
PROVIDERS: Emergency Medicine; Family Medicine; Hospitalist; Internal Medicine; ADMIT Emergency Medicine
PROC: 30233N1 Transfusion of Nonautologous Red Blood Cells into Peripheral Vein, Percutaneous Approach (ICD-10-PCS; principal; 2021-08-30)
DX: G30.9 Alzheimer's disease, unspecified (principal); G21.0 Malignant neuroleptic syndrome; F02.81 Dementia in other diseases classified elsewhere, unspecified severity, with behavioral disturbance; R65.10 Systemic inflammatory response syndrome (SIRS) of non-infectious origin without acute organ dysfunction; Z66 Do not resuscitate; Z51.5 Encounter for palliative care; N17.9 Acute kidney failure, unspecified; E87.0 Hyperosmolality and hypernatremia; D62 Acute posthemorrhagic anemia; Z20.822 Contact with and (suspected) exposure to COVID-19; Z78.1 Physical restraint status; I95.9 Hypotension, unspecified; R19.5 Other fecal abnormalities; E87.6 Hypokalemia; E86.0 Dehydration; R50.9 Fever, unspecified; R73.9 Hyperglycemia, unspecified; R33.9 Retention of urine, unspecified; K21.9 Gastro-esophageal reflux disease without esophagitis; E78.5 Hyperlipidemia, unspecified; Z87.891 Personal history of nicotine dependence; Z79.899 Other long term (current) drug therapy
CPT/HCPCS: 0241U; 31720; 36415; 70450; 71045; 74018; 74177; 80048; 80053; 80069; 80076; 80164; 81001; 82140; 82272; 82550; 82553; 82607; 82728; 82746; 82803; 82947; 83540; 83550; 83605; 83615; 83735; 83874; 84100; 84132; 84439; 84443; 84481; 84484; 85007; 85014; 85018; 85025; 85027; 86592; 86850; 86900; 86901; 86920; 86923; 87040; 87086; 92526; 92610; 93005; 93010; 96372; 97129; 97165; 99285-25; A9270; C9113; G0378; G0480; J1650; J1790; J1885; J2060; J3486; J7030; J7040; J7042; J7050; J7120; P9016; Q9967